=== PATIENT | female | born 1930 | race Caucasian/White ===

== ENCOUNTER 2019-07-17 12:47 | Inpatient (IN) ==
--- OUTSIDE RECORDS SUMMARY | 2019-07-17 12:50 | External Medical Summary | Continuity of Care Document ---
:1930 Author Name Mark Maynard Address Unavailable Unavailable , Care Team Providers Name Role Phone NonMNPG M.D. Unavailable [email or web address] Unavailable Unavailable Unavailable Unavailable Unavailable Problems Active medical history not documented Allergies and Adverse Reactions Demerol SOLN (Allergy) Fosamax (Allergy) loratadine (Allergy) lovastatin (Allergy) meperidine (Allergy) niacin (Allergy) Penicillins (Allergy) pravastatin (Allergy) simvastatin (Allergy) Medications Magnesium 500 MG Oral Capsule; TAKE 1 CAPSULE Daily Start: 06-Mar-2019 Refills: 0 Lisinopril 5 MG Oral Tablet; Take 1 tablet daily Start: 06-Mar-2019 Quantity: 90 Refills: 3 Pravastatin Sodium 10 MG Oral Tablet; TAKE 1 TABLET DAILY DIRECTED. Start: 06-Mar-2019 Refills: 0 Vitamin D3 2000 UNIT Oral Capsule; TAKE 1 CAPSULE Daily with the main meal Start: 06-Mar-2019 Refills: 0 Esomeprazole Magnesium 20 MG Oral Capsul e Delayed Release; TAKE 1 CAPSULE ONCE DAILY. Start: 06-Mar-2019 Refills: 0 Aspirin Low Dose 81 MG Oral Tablet Delayed Release; TAKE 1 T ABLET DAILY. Start: 06-Mar-2019 Refills: 0 Procedures History of colonoscopy Status: Completed History of dilation and curettage Status : Completed History of cataract surgery Status: Comp leted History of Tonsillectomy With Adenoidectomy Status: Completed Immunizations Immunizations not documented Family History Father Family history of asthma (V17.5) (Z82.5) Status: Active Sister Family history of diabetes mellitus (V18.0) (Z83.3) Status: Active Family history of cardiac disorder (V17.49) (Z82.49) Status: Active Brother Family history of diabetes mellitus (V18.0) (Z83.3) Status: Active Family history of arthritis (V17.7) (Z82.61) Status: Active Social History - Smoking Status Former smoker Plan of Treatment Planned Observations Planned Goals not documented Results No Known Results Results not documented
--- NOTE | 2019-07-17 13:21 | XRay Report ---
XR chest 1V portable HISTORY: 89 years-old Female Chest Pain acute atypical chest pain COMPARISON: None available TECHNIQUE: Portable AP view of the chest FINDINGS: Cardiomediastinal and hilar silhouettes are within normal limits. Mild biapical pleural thickening/pl eural parenchyma scarring. No pneumothorax, pleural effusion, focal airspace consolidation or overt p ulmonary edema. Ill-defined linear opacities of the right midlung may be secondary to summation densi ty versus scarring. Degenerative changes of the shoulders and spine. IMPRESSION: No acute process. The above report was generated using voice recognition software. It may contain grammatical, syntax o r spelling errors. Electronically signed by: Ashwin Aguilar M.D. 07/17/2019 1:19 PM
[2019-07-17] MEDS ORDERED: SODIUM CHLORIDE 0.9% 500 ML IV ONE (13:43)
[2019-07-17 13:56] LABS: Basophils # (auto) 0.06 K/uL (0-0.2); Basophils % (auto) 0.9 %; Eosinophils # (auto) 0.08 K/uL (0-0.5); Eosinophils % (auto) 1.2 %; Hematocrit (blood only) 43.3 % (37-47); Hemoglobin 14.9 g/dL (12.0-16.0); Immature Granulocytes # (auto) 0.02 K/uL (0.00-0.02); Immature Granulocytes % (auto) 0.3 %; Lymphocytes # (auto) 1.83 K/uL (1.2-3.4); Lymphocytes % (auto) 28.3 %; Mean Corpuscular Hemoglobin 29.6 pg (25-34); Mean Corpuscular Hgb Conc 34.4 g/dL (32-36); Mean Corpuscular Volume 86.1 fL (80-100); Mean Platelet Volume 10.2 fL (7.4-10.4); Monocytes % (auto) 9.3 %; Neutrophils # (auto) 3.87 K/uL (1.4-6.5); Platelet Count 199 K/uL (130-400); RDW Coefficient of Variation 13.4 % (11.5-14.5); RDW Standard Deviation 41.7 fL (36.4-46.3); Red Blood Count 5.03 M/uL (4.2-5.4); White Blood Count 6.46 K/uL (4.8-10.8)
[2019-07-17 14:07] LABS: Alanine Aminotransferase 23 U/L (12-78); Aspartate Aminotransferase 16 U/L (15-37); BUN Creatinine Ratio 13.5 (10-20); Blood Urea Nitrogen 12 mg/dl (7-18); Calcium 9.5 mg/dl (8.5-10.1); Carbon Dioxide 24 mmol/L (21-32); Chloride 108 mmol/L (98-107); Creatinine Clr Calc Pharmacy 34.3 ml/min; Est GFR (Non-African American) 55.2; Glucose 101 mg/dl (70-99); Lipase 115 U/L (73-393); Magnesium 2.3 mg/dl (1.8-2.4); Potassium 4.1 mmol/L (3.5-5.1); Sodium 139 mmol/L (136-145)
[2019-07-17 14:18] LABS: Albumin Globulin Ratio 1.2 (0.9-2); Alkaline Phosphatase 107 U/L (45-117); Globulin 3.3 gm/dl (2.5-4.0); Phosphorus 2.9 mg/dl (2.5-4.9); Total Protein 7.3 gm/dl (6.4-8.2); Troponin I < 0.015 ng/ml (0-0.045)
--- NOTE | 2019-07-17 15:45 | Cardiology Consultation ---
Date of Consultation July 17, 2019 Assessment & Plan (1) Second degree AV block, Mobitz type II: She denies any recent chest discomfort, or syncope. Patient presents with a week of symptoms of exertional shortness of breath. She has not had ryne syncope. She is been found to have Mobitz type II second-degree AV block with a ventricular rate ranging from the low 40s to Low 50 be per minute range during my time assessing her in the emergency department. She is conversant, and her mentation is intact. She is on no AV daniela blockers at baseline and her TSH is within normal limits. At this time I recommend admission to the first floor ICU for close observation. She is hemodynamically stable and I do not think a temporary transvenous pacemaker is indicated at the present time. We will plan to keep her n.p.o. after midnight. I discussed her case with Dr. Sahni of electrophysiology and the tentative plan is for Dual-chamber permanent pacemaker to be performed in the operating room tomorrow 07/18/2019. If she becomes symptomatic with low blood pressure or worsening heart rates overnight, will first support her with low-dose peripheral dopamine, and will reconsider the need for temporary transvenous pacemaker at that time. A transthoracic echocardiogram has been requested and is to be performed at the bedside within few minutes. The case was discussed with Shruti Nguyen PA-C of the [facility] service as well as Dr Keene of the ED , Dr Sahni, and the ICU attending. History of Present Illness History of Present Illness Mercedez Burris is an 89 year old female seen in cardiology consultation per the request of Dr Keene for the assessment of symptomatic bradycardia. The patient's primary care provider is Dr Wilcox. She has not followed with cardiology in the past. She presented to her primary care provider's office today just before 12 noon with 1 week history of shortness of breath with exertion.On arrival there she was found to have a slow heart rate When her vital signs were taken prompting a twelve-lead EKG performed 07/17/2019 at 1145 which revealed sinus rhythm with Mobitz type II second-degree AV block at 48 bpm. A bifascicular block pattern was also noted. She was referred to the emergency department and repeat EKG performed at 1307 revealed similar findings with a ventricular rate of 42 bpm at that time. EKG performed at 1520 reveals ventricular rate of 43 bpm. Monitoring the patient on telemetry, for the most part she seems to have 2 sinus beats followed by a dropped beat, 2-1 AV block however has also been observed and this was captured at the time of her 1520 EKG. She is not in acute distress. Her blood pressure has ranged anywhere from 200/80 on presentation to 160/49 at the time of her most recent repeat. Her past medical history is notable for dyslipidemia for which she takes pravastatin, and Hypertension for which she takes lisinopril and Hyperparathyroidism. Her Calcium level however is within normal limits today. Her social history is notable for past Cigarette smoking (). She lives independently with her significant other. Allergies Allergy/AdvReac Type Severity Reaction Status Date / Time Penicillins Allergy Severe edema Verified 07/17/19 14:52 loratadine Allergy Unknown Rash Verified 07/17/19 14:52 meperidine [From Demerol] Allergy Redness of Unverified 07/17/19 14:32 Skin Ashgcok-Aps-Sxl Reductase AdvReac Intermediate muscle pain Verified 07/17/19 14:52 Inhibitor lovastatin AdvReac Mild Muscle Pain Verified 07/17/19 14:52 alendronate sodium AdvReac Unknown herat burn Verified 07/17/19 14:52 [From Fosamax] Home Medications Home Medications Medication Instructions Recorded Confirmed Type aspirin [Aspirin Low Dose] 81 mg PO DAILY 07/17/19 07/17/19 History cholecalciferol (vitamin D3) 2,000 unit PO DAILY 07/17/19 07/17/19 History [Vitamin D3] esomeprazole magnesium [Nexium] 20 mg PO DAILY 07/17/19 07/17/19 History lisinopril 5 mg PO DAILY 07/17/19 07/17/19 History magnesium oxide 400 mg PO DAILY 07/17/19 07/17/19 History pravastatin 10 mg PO DAILY 07/17/19 07/17/19 History Patient History Medical History Heart murmur (Chronic) Family History Other No significant family history Social History Feels Safe at Home: Yes Smoking Status: Former smoker Review of Systems Review of Systems: All systems reviewed & are unremarkable except as noted in HPI & below Physical Exam Physical Exam: Temp Pulse Resp BP Pulse Ox 36.9 C 34 L 19 164/49 H 98 07/17/19 12:58 07/17/19 15:00 07/17/19 15:00 07/17/19 13:46 07/17/19 15:00 Constitutional: WD/WN, vitals as above Respiratory: normal respiratory effort, lungs clear to auscultation Cardiovascular: RRR, no murmur, no edema Gastrointestinal (Abdomen): normal bowel sounds, soft, nontender, no hepatosplenomegaly Skin: no rashes, warm and dry Neurologic: PERRL, EOMI, accommodation nl, no face palsy, no dysarthria Results & Data Vital Signs (Past 12 Hours) Vital Signs Temp Pulse Resp BP Pulse Ox 07/17/19 15:00 34 L 19 98 07/17/19 14:45 39 L 17 98 07/17/19 14:30 35 L 12 95 07/17/19 14:15 51 L 18 95 07/17/19 14:00 71 22 07/17/19 13:46 36 L 18 164/49 H 95 07/17/19 13:45 39 L 15 96 07/17/19 13:41 40 L 16 169/54 H 96 07/17/19 13:31 63 19 185/116 H 98 07/17/19 13:30 64 17 07/17/19 13:15 45 L 17 97 07/17/19 13:01 38 L 16 170/61 H 98 07/17/19 13:00 49 L 18 98 07/17/19 12:58 36.9 C 49 L 19 170/61 H 98 07/17/19 12:55 49 L 21 200/80 H 97 Laboratory Results Cardiac Enzymes 07/17/19 Range/Units 13:26 AST 16 (15-37) U/L Troponin I < 0.015 (0-0.045) ng/ml CBC 07/17/19 Range/Units 13:26 WBC 6.46 (4.8-10.8) K/uL RBC 5.03 (4.2-5.4) M/uL Hgb 14.9 (12.0-16.0) g/dL Hct 43.3 (37-47) % Plt Count 199 (130-400) K/uL Neut # (Auto) 3.87 (1.4-6.5) K/uL Lymph # (Auto) 1.83 (1.2-3.4) K/uL Wilkin # (Auto) 0.60 H (0.11-0.59) K/uL Eos # (Auto) 0.08 (0-0.5) K/uL Baso # (Auto) 0.06 (0-0.2) K/uL Comprehensive Metabolic Panel 07/17/19 Range/Units 13:26 Sodium 139 (136-145) mmol/L Potassium 4.1 (3.5-5.1) mmol/L Chloride 108 H (98-107) mmol/L Carbon Dioxide 24 (21-32) mmol/L BUN 12 (7-18) mg/dl Creatinine 0.92 (0.6-1.2) mg/dl Glucose 101 H (70-99) mg/dl Calcium 9.5 (8.5-10.1) mg/dl AST 16 (15-37) U/L ALT 23 (12-78) U/L Alkaline Phosphatase 107 (45-117) U/L Total Protein 7.3 (6.4-8.2) gm/dl Albumin 4.0 (3.4-5.0) gm/dl Intake and Output 07/17/19 07/17/19 07/17/19 06:59 14:59 22:59 Other: Weight 57.4 kg Patient Weight 07/18/19 06:59 Weight 57.4 kg
--- NOTE | 2019-07-17 16:25 | History & Physical Report ---
Date of Service July 17, 2019 Assessment & Plan (1) Second degree AV block, Mobitz type II: This is an 89 year old F who has significant past medical history of primary hyperparathyroidism, HTN, HLD, prediabetes, GERD, senile osteoporosis, transient constipation who presents to [facility] ED secondary to LIM x1 week and being referred by PCP. In ED patient was found to be bradycardic which prompted ECG. ECG revealed sinus rhythm with Mobitz type II second-degree AV block at 48 bpm. Her lab work was otherwise unremarkable including CBC, CMP, troponin, TSH, magnesium Chest x-ray revealed no acute abnormality Patient was seen and evaluated by cardiology Dr. Zapata, permanent pacemaker advised Echocardiogram performed which revealed normal left ventricular wall motion, LVEF 65 to 70%, mild mitral regurg Currently pt asymptomatic - admit to ICU for close cardiac monitoring Cardiology on board, appreciate their recommendations - care coordinated with Dr. Zapata to under go dual chamber pacemaker in a.m. Housekeeping Assistant on board - appreciate their input follow labs (2) Hypertension: blood pressure elevated on lisinopril - given bradycardia do not want to lower blood pressure monitor (3) Hyperlipidemia: continue statin (4) Pre-diabetes: A1C 5.9 03/13 icu hyperglycemic protocol (5) GERD (gastroesophageal reflux disease): continue PPI (6) DVT prophylaxis: SCDS/TEDS pt for procedure in a.m. therefore will hold chemical ppx Disposition: D/C to home when able Follow up: PCP Dr. Wilcox upon discharge Patient was seen and examined in collaboration with Dr. Dave, please see addendum History of Present Illness Chief Complaint: LIM x 1 week; referred by outpatient provider Primary Care Provider: Kristofer Wilcox MD This is an 89 year old F who has significant past medical history of primary hyperparathyroidism, HTN, HLD, prediabetes, GERD, senile osteoporosis, transient constipation who presents to [facility] ED secondary to LIM x1 week and being referred by PCP. Patient was seen in PCP office secondary to 1 week history of shortness of breath with exertion. When she was seen in outpatient provider office this afternoon she was noted to be in second-degree heart block and therefore referred to ED. Symptoms started after she was working vigorously outside and getting into her significant other's Truck. LIM came on abruptly and has been off and on for the past week. Does not occur at rest. Usually present for a few minutes and resolves with rest. Noticed mostly with using stairs but not typical ADLs. She has not had any fever, chills, sweats colitis, dizziness, syncope, chest pain, palpitations, cough, hemoptysis, nausea, vomiting, diarrhea, change in bowel or urinary habits. Complains of off and on constipation. No known tick bite, rash or myalgias. She was feeling her carotid pulse and felt like her heart was skipping a beat. In ED patient was found to be bradycardic which prompted ECG. ECG revealed sinus rhythm with Mobitz type II second-degree AV block at 48 bpm. Her lab work was otherwise unremarkable including CBC, CMP, troponin, TSH, magnesium Chest x-ray revealed no acute abnormality Patient was seen and evaluated by cardiology Dr. Zapata, permanent pacemaker advised Allergies Allergy/AdvReac Type Severity Reaction Status Date / Time Penicillins Allergy Severe edema Verified 07/17/19 14:52 loratadine Allergy Unknown Rash Verified 07/17/19 14:52 meperidine [From Demerol] Allergy Redness of Unverified 07/17/19 14:32 Skin Kdlxunc-Hrl-Oyv Reductase AdvReac Intermediate muscle pain Verified 07/17/19 14:52 Inhibitor lovastatin AdvReac Mild Muscle Pain Verified 07/17/19 14:52 alendronate sodium AdvReac Unknown herat burn Verified 07/17/19 14:52 [From Fosamax] Home Medications Home Medications Medication Instructions Recorded Confirmed Type aspirin [Aspirin Low Dose] 81 mg PO DAILY 07/17/19 07/17/19 History cholecalciferol (vitamin D3) 2,000 unit PO DAILY 07/17/19 07/17/19 History [Vitamin D3] esomeprazole magnesium [Nexium] 20 mg PO DAILY 07/17/19 07/17/19 History lisinopril 5 mg PO DAILY 07/17/19 07/17/19 History magnesium oxide 400 mg PO DAILY 07/17/19 07/17/19 History pravastatin 10 mg PO DAILY 07/17/19 07/17/19 History Past Med/Surg History Medical History Primary hyperparathyroidism Pre-diabetes GERD (gastroesophageal reflux disease) Osteoporosis, senile Hyperlipidemia (Chronic) Hypertension (Chronic) Second degree AV block, Mobitz type II (Acute) Heart murmur (Chronic) Surgical History History of tonsillectomy and adenoidectomy History of cataract extraction History of colonoscopy with polypectomy History of vein stripping History of D&C Family History Father Asthma Mother No problems noted. Sister Diabetes Sister Diabetes Coronary heart disease DVT prophylaxis Social History Preferred Language: Omani Communication Ability: Effective Adobe Cq Developer Required: No Beliefs That Will Affect Care: None marital status: Life Partner Current Living Situation: Significant Other Other Information That Helps Us Care for You: No Feels Safe at Home: Yes Safety Concerns: Feels Safe At This Time Smoking Status: Former smoker Do You Dip or Chew Tobacco: No ; Smoking End Date: 1962 ; Second Hand Exposure: No ; Tobacco Cessation Education Requested by Patient: No Hx Alcohol Use: No Hx Substance Use: No Review of Systems Review of Systems: All systems reviewed & are unremarkable except as noted in HPI & below Physical Exam Physical Exam: Constitutional: WD/WN, vitals as above, NAD, sitting up in bed, pleasant, conversing easily Head: Normocephalic, Atraumatic Eyes: PERRL, conjunctivae normal, anicteric sclerae ENMT: external ear and nose normal, oropharynx normal Neck: trachea midline, no thyromegaly normal visual inspection Respiratory: normal respiratory effort, lungs clear to auscultation, no wheeze, rales, rhonchi. Normal insp/exp effort, no accessory muscle use Cardiovascular: bradycardic rate, regular rhythm, no murmur, no edema Vessels: no JVD or carotid bruit Chest: normal inspection of chest Abdomen: normal bowel sounds, soft, nontender, no hepatosplenomegaly Musculoskeletal: no cyanosis or clubbing, extremities motor strength 5/5 Skin: no rashes, warm and dry normal turgor Neurologic: PERRL, EOMI, accommodation nl, no face palsy, no dysarthria CN's II-XI intact bilaterally and moves all extremities Psychiatric: A+Ox3, euthymic affect Lymphatic: no cervical or axillary lymphadenopathy : deferred Results & Data Vital Signs (Past 12 Hours) Vital Signs Temp Pulse Resp BP Pulse Ox 07/17/19 15:00 34 L 19 98 07/17/19 14:45 39 L 17 98 07/17/19 14:30 35 L 12 95 07/17/19 14:15 51 L 18 95 07/17/19 14:00 71 22 07/17/19 13:46 36 L 18 164/49 H 95 07/17/19 13:45 39 L 15 96 07/17/19 13:41 40 L 16 169/54 H 96 07/17/19 13:31 63 19 185/116 H 98 07/17/19 13:30 64 17 07/17/19 13:15 45 L 17 97 07/17/19 13:01 38 L 16 170/61 H 98 07/17/19 13:00 49 L 18 98 07/17/19 12:58 36.9 C 49 L 19 170/61 H 98 07/17/19 12:55 49 L 21 200/80 H 97 Laboratory Results Short CBC 07/17/19 Range/Units 13:26 WBC 6.46 (4.8-10.8) K/uL Hgb 14.9 (12.0-16.0) g/dL Hct 43.3 (37-47) % Plt Count 199 (130-400) K/uL BMP 07/17/19 13:26 Sodium 139 Potassium 4.1 Chloride 108 H Carbon Dioxide 24 BUN 12 Creatinine 0.92 Glucose 101 H Calcium 9.5 Cardiac Enzymes 07/17/19 Range/Units 13:26 Troponin I < 0.015 (0-0.045) ng/ml Liver Function 07/17/19 Range/Units 13:26 Total Bilirubin 2.0 H (0.2-1) mg/dl AST 16 (15-37) U/L ALT 23 (12-78) U/L Alkaline Phosphatase 107 (45-117) U/L Albumin 4.0 (3.4-5.0) gm/dl Diagnostic Findings CXR: IMPRESSION: No acute process. ECG Rate (beats per minute): 42 Rhythm: normal sinus Findings: + mobitz II block Additional Comments: bifasicular block noted Code Status & VTE Plan Code Status Full Code VTE Prophylaxis Plan VTE Prophylaxis will be ordered: Yes Supervising Physician Co-Signing Physician Notes I have seen and examined the patient and have discussed the case with the beena mckenzie above. I agree with the assessment and plan as stated with the following exceptions. 89 yo F with lightheadedness x 1 week presents to the ER, and was found to have Type II heart block requiring a pacemaker. She denies fevers, chills, chest pain, dyspnea or other symptoms aside from her lightheadedness. Workup reveals no evidence of active ischemia, valvular disease or infection present. Physical exam reveals a well developed female in no acute distress who is mentating clearly. Heart exam reveals bradycardia without murmurs, gallops or rubs. Lungs are clear to auscultation bilaterally. No peripheral edema is present. Assessment: Type II heart block. Agree with plan to place pacemaker. NPO p MN in preparation for procedure. Pacer pads in place. Appreciate cardiology recommendations. DO Tenzin
--- NOTE | 2019-07-17 16:41 | Critical Care Consultation ---
Date of Consultation July 17, 2019 Assessment & Plan (1) Second degree AV block, Mobitz type II: Summary: 89-year-old female transferred to the ICU following Mobitz type II second-degree AV block with bradycardia 40s to 50s, currently asymptomatic at rest. Neuro - [facility] ICU: Negative Cardiac - EKG showed second degree AV block, Mobitz type IIheart rate currently 40s to 50s -Patient is currently asymptomatic at rest -Cardiology consulted, appreciate recommendations -Patient to undergo dual-chamber pacemaker tomorrow -We will follow-up TTE -Does not currently require internal pacing -May add dopamine if patient becomes hypotensive -Continue monitor on telemetry HTNwe will hold antihypertensives for now considering bradycardia HLDcan continue lisinopril Respiratory - Maintaining oxygen saturations on room air, no issue at this time GI - N.p.o. at midnight Amylase and LFTs within normal limits RENAL/LYTES - Creatinine within normal limits Maximize electrolyte - Strict I's and O's ENDO - TSH within normal limits History of prediabetesICU hyperglycemia protocol HEME - H&H stable, routine CBCs ID - No indication for infectious process at this time LINES/IV ACCESS - Peripheral IVs DVT PROPHYLAXIS - SCDs, will hold anticoagulation for procedure tomorrow Thank you for allowing us to participate in the care of this patient. Please refer to my attending physician's documentation for any further recommendations. (2) SOB (shortness of breath): (3) Admitted to intensive care unit: (4) Hypertension: (5) Hyperlipidemia: Supervising Physician Co-Signing Physician Notes Patient seen and evaluated with Samir YUSUF. Very pleasant 89-year-old female with minimal past medical history who began having shortness of breath this past weekend. She also describes some palpi tations. She set up an appointment with her doctor who performed an EKG and then told her to come to the emergency department due to concern of a Mobitz type II heart block. She was evaluated by cardiology emergency department who recommended ICU admission and pacemaker placement tomorrow. Closely in the ICU. We will add dopamine if needed. Keep potassium above 4 and magnesium above 2. No indication for temporary pacer at the present moment. Discussed with body and frame technician. History of Present Illness History of Present Illness Ms. Burris is a 89-year-old female with past medical history of HTN, HLD, hyperparathyroidism, prediabetes who presented to the emergency department as referral from primary care for 1 week long dyspnea with exertion. In the emergency department she was found to be an second-degree AV block Mobitz type II with rate in the 40s and 50s. She has remained hemodynamically stable and normotensive in this rhythm. She is not requiring intervention at this time but is being transferred to the ICU for close observation in case she were to decompensate. Cardiology is consulted and has scheduled the patient to undergo dual-chamber pacemaker insertion tomorrow. Currently the patient appears comfortable. She is sitting upright in bed at rest. She reports a flushing of face and head experience in the emergency department while she was getting her EKG. She denies syncope, dizziness, lightheadedness, palpitations, chest pain, shortness of breath while at rest, nausea or vomiting, diarrhea, abdominal pain. Allergies Allergy/AdvReac Type Severity Reaction Status Date / Time Penicillins Allergy Severe edema Verified 07/17/19 14:52 loratadine Allergy Unknown Rash Verified 07/17/19 14:52 meperidine [From Demerol] Allergy Redness of Unverified 07/17/19 14:32 Skin Gzdtrsn-Vqx-Oig Reductase AdvReac Intermediate muscle pain Verified 07/17/19 14:52 Inhibitor lovastatin AdvReac Mild Muscle Pain Verified 07/17/19 14:52 alendronate sodium AdvReac Unknown herat burn Verified 07/17/19 14:52 [From Fosamax] Home Medications Home Medications Medication Instructions Recorded Confirmed Type aspirin [Aspirin Low Dose] 81 mg PO DAILY 07/17/19 07/17/19 History cholecalciferol (vitamin D3) 2,000 unit PO DAILY 07/17/19 07/17/19 History [Vitamin D3] esomeprazole magnesium [Nexium] 20 mg PO DAILY 07/17/19 07/17/19 History lisinopril 5 mg PO DAILY 07/17/19 07/17/19 History magnesium oxide 400 mg PO DAILY 07/17/19 07/17/19 History pravastatin 10 mg PO DAILY 07/17/19 07/17/19 History Patient History Medical History Primary hyperparathyroidism Pre-diabetes GERD (gastroesophageal reflux disease) Osteoporosis, senile Hyperlipidemia (Chronic) Hypertension (Chronic) Second degree AV block, Mobitz type II (Acute) Heart murmur (Chronic) Surgical History History of tonsillectomy and adenoidectomy History of cataract extraction History of colonoscopy with polypectomy History of vein stripping History of D&C Family History Father Asthma Mother No problems noted. Sister Diabetes Sister Diabetes Coronary heart disease DVT prophylaxis Social History Preferred Language: Kosovan Communication Ability: Effective Director Of Estate Required: No Beliefs That Will Affect Care: None marital status: Life Partner Current Living Situation: Significant Other Other Information That Helps Us Care for You: No Feels Safe at Home: Yes Safety Concerns: Feels Safe At This Time Smoking Status: Former smoker Do You Dip or Chew Tobacco: No ; Smoking End Date: 1962 ; Second Hand Exposure: No ; Tobacco Cessation Education Requested by Patient: No Hx Alcohol Use: No Hx Substance Use: No Physical Exam Eyes: PERRL, conjunctivae normal, anicteric sclerae ENMT: external ear and nose normal, oropharynx normal Neck: trachea midline, no thyromegaly Respiratory: normal respiratory effort, lungs clear to auscultation Cardiovascular: Irregular bradycardia on monitor, good peripheral perfusion, no JVD, normal capillary refill Gastrointestinal (Abdomen): normal bowel sounds, soft, nontender, no hepatosplenomegaly Skin: no rashes, warm and dry Neurologic: PERRL, EOMI, accommodation nl, no face palsy, no dysarthria Psychiatric: A+Ox3, euthymic affect Results & Data Vital Signs (Past 12 Hours) Vital Signs Temp Pulse Resp BP Pulse Ox 07/17/19 15:00 34 L 19 98 07/17/19 14:45 39 L 17 98 07/17/19 14:30 35 L 12 95 07/17/19 14:15 51 L 18 95 07/17/19 14:00 71 22 07/17/19 13:46 36 L 18 164/49 H 95 07/17/19 13:45 39 L 15 96 07/17/19 13:41 40 L 16 169/54 H 96 07/17/19 13:31 63 19 185/116 H 98 07/17/19 13:30 64 17 07/17/19 13:15 45 L 17 97 07/17/19 13:01 38 L 16 170/61 H 98 07/17/19 13:00 49 L 18 98 07/17/19 12:58 36.9 C 49 L 19 170/61 H 98 07/17/19 12:55 49 L 21 200/80 H 97 Laboratory Results Laboratory Results - last 24 hr 07/17/19 07/17/19 13:26 13:26 WBC 6.46 RBC 5.03 Hgb 14.9 Hct 43.3 MCV 86.1 MCH 29.6 MCHC 34.4 RDW Std Deviation 41.7 RDW Coeff of Ashley 13.4 Plt Count 199 MPV 10.2 Immature Gran % (Auto) 0.3 Neut % (Auto) 60.0 Lymph % (Auto) 28.3 [place] % (Auto) 9.3 Eos % (Auto) 1.2 Baso % (Auto) 0.9 Immature Gran # (Auto) 0.02 Neut # (Auto) 3.87 Lymph # (Auto) 1.83 [place] # (Auto) 0.60 H Eos # (Auto) 0.08 Baso # (Auto) 0.06 Sodium 139 Potassium 4.1 Chloride 108 H Carbon Dioxide 24 Anion Gap 7.0 BUN 12 Creatinine 0.92 Est Cr Clr Drug Dosing 34.3 Est GFR ( Amer) 64.0 Est GFR (Non-Af Amer) 55.2 BUN/Creatinine Ratio 13.5 Glucose 101 H Calcium 9.5 Phosphorus 2.9 Magnesium 2.3 Total Bilirubin 2.0 H AST 16 ALT 23 Alkaline Phosphatase 107 Troponin I < 0.015 Total Protein 7.3 Albumin 4.0 Globulin 3.3 Albumin/Globulin Ratio 1.2 Lipase 115 TSH 1.950 Medications Administered Home Medications aspirin [Aspirin Low Dose] 81 mg PO DAILY 07/17/19 [History Confirmed 07/17/19] cholecalciferol (vitamin D3) [Vitamin D3] 2,000 unit PO DAILY 07/17/19 [History Confirmed 07/17/19] esomeprazole magnesium [Nexium] 20 mg PO DAILY 07/17/19 [History Confirmed 07/17/19] lisinopril 5 mg PO DAILY 07/17/19 [History Confirmed 07/17/19] magnesium oxide 400 mg PO DAILY 07/17/19 [History Confirmed 07/17/19] pravastatin 10 mg PO DAILY 07/17/19 [History Confirmed 07/17/19] PG Care Time/CCT Total # of Minutes Spent Total Time Spent with Patient: Total time spent is greater than 50% in coordination of care (as documented) at patient's floor/unit and/or counseling patient:
[2019-07-17] MEDS ORDERED: MAGNESIUM HYDROXIDE SUSP 30 ML UDC PO PRN (17:27)
[2019-07-17] MEDS ORDERED: NON-FORMULARY MEDICATION (Cholecalciferol (Vitamin D3) [Vitamin D3] 2,000 UNITS) PO SCH (17:27)
[2019-07-17] MEDS ORDERED: ICU PROTOCOL FOR HYPERGLYCEMIA PRN (17:27)
[2019-07-17] MEDS ORDERED: ALUMINUM/MAGNESIUM SUSP 30 ML UDC PO PRN (17:27)
[2019-07-17] MEDS ORDERED: POLYETHYLENE (MIRALAX) 17 GM PACK PO PRN (17:27)
[2019-07-17] MEDS ORDERED: ONDANSETRON INJ 2 MG/ML 2 ML VIAL IV PRN (17:27)
--- NOTE | 2019-07-17 18:07 | Communication Note ---
Date of Service: July 17, 2019 Pt reassessed. Heart rates in the 60s , sitting up in bed eating dinner. Family at bedside. Asymptomatic. Echo reveals normal LVEF, mild MR. NPO after MN.
[2019-07-17 18:21] LABS: Bilirubin Direct 0.3 mg/dl (0-0.2)
[2019-07-17] MEDS: CHOLECALCIFEROL 1,000 UNITS TAB PO SCH (19:17)
[2019-07-17] MEDS: SODIUM CHLORIDE 0.9% 1000ML 1,000 ML IV SCH (19:18)
--- NOTE | 2019-07-17 20:11 | Emergency Department Note ---
Entered by Leana Johnson acting as a scribe for Power Keene MD History of Present Illness General Chief complaint: Shortness of Breath/Dyspnea Time Seen by Provider: 07/17/19 13:03 Source: patient History of Present Illness Onset (ago): week(s) 1 Location: mouth (shortness of breath) Pain Consistency: + other (worsening) Exacerbated By: + movement (dizziness worsens with walking up the stairs) Associated symptoms: + cough, + weakness and + other (intermittent dizziness, loss of energy) The patient is an 89 year old F who presents to the Emergency Room with complaints of worsening shortness of breath that started 1 week ago. The patient states that she is currently experiencing intermittent dizziness, weakness, a loss of energy, and coughing. She notes that her dizziness is worse with walking up the stairs. She states that her symptoms started when she was ripping out her old carpeting from her floor. She notes that she saw her PCP today who referred her to the ED due to a low heart rate. She adds that she has a history of a heart murmur. Home Medications Home Medications Medication Instructions Recorded Confirmed Type aspirin [Aspirin Low Dose] 81 mg PO DAILY 07/17/19 07/17/19 History cholecalciferol (vitamin D3) 2,000 unit PO DAILY 07/17/19 07/17/19 History [Vitamin D3] esomeprazole magnesium [Nexium] 20 mg PO DAILY 07/17/19 07/17/19 History lisinopril 5 mg PO DAILY 07/17/19 07/17/19 History magnesium oxide 400 mg PO DAILY 07/17/19 07/17/19 History pravastatin 10 mg PO DAILY 07/17/19 07/17/19 History Allergies Allergy/AdvReac Type Severity Reaction Status Date / Time Penicillins Allergy Severe edema Verified 07/17/19 14:52 loratadine Allergy Unknown Rash Verified 07/17/19 14:52 meperidine [From Demerol] Allergy Redness of Unverified 07/17/19 14:32 Skin Ushbbof-Sve-Lic Reductase AdvReac Intermediate muscle pain Verified 07/17/19 14:52 Inhibitor lovastatin AdvReac Mild Muscle Pain Verified 07/17/19 14:52 alendronate sodium AdvReac Unknown herat burn Verified 07/17/19 14:52 [From Fosamax] Past Med/Surg History Medical History Primary hyperparathyroidism Pre-diabetes GERD (gastroesophageal reflux disease) Osteoporosis, senile Hyperlipidemia (Chronic) Hypertension (Chronic) Second degree AV block, Mobitz type II (Acute) Heart murmur (Chronic) Surgical History History of tonsillectomy and adenoidectomy History of cataract extraction History of colonoscopy with polypectomy History of vein stripping History of D&C Family History Father Asthma Mother No problems noted. Sister Diabetes Sister Diabetes Coronary heart disease DVT prophylaxis Social History Preferred Language: Khmer Communication Ability: Effective Customer Marketing Manager Required: No Beliefs That Will Affect Care: None marital status: Life Partner Current Living Situation: Significant Other Other Information That Helps Us Care for You: No Feels Safe at Home: Yes Safety Concerns: Feels Safe At This Time Smoking Status: Former smoker Do You Dip or Chew Tobacco: No ; Smoking End Date: 1962 ; Second Hand Exposure: No ; Tobacco Cessation Education Requested by Patient: No Hx Alcohol Use: No Hx Substance Use: No Review of Systems See HPI for pertinent positives & negatives. and A total of 10 systems reviewed and were otherwise negative Physical Exam Vital Signs Vital Signs - 24 hr 07/17/19 12:55 07/17/19 12:58 07/17/19 13:00 Temperature 36.9 C Temperature Source Oral Sepsis Recent Fever Within 48 Hours No Sepsis Action Taken by Nursing No Action Required Pulse Rate 49 L 49 L 49 L Pulse Rate from SpO2 Sensor 53 L 56 L 44 L Pulse Rhythm Regular Irregular Pulse Strength Normal Respiratory Rate 21 19 18 Respiratory Effort / Characteristics Non-Labored Spontaneous Respiratory Depth Normal Respiratory Pattern Regular Blood Pressure 200/80 H 170/61 H Blood Pressure Mean 120 97 Blood Pressure Position Sitting Pulse Oximetry 97 98 98 Oxygen Delivery Method Room Air Room Air 07/17/19 13:01 07/17/19 13:15 07/17/19 13:30 Temperature Temperature Source Sepsis Recent Fever Within 48 Hours Sepsis Action Taken by Nursing Pulse Rate 38 L 45 L 64 Pulse Rate from SpO2 Sensor 40 L 47 L Pulse Rhythm Pulse Strength Respiratory Rate 16 17 17 Respiratory Effort / Characteristics Respiratory Depth Respiratory Pattern Blood Pressure 170/61 H Blood Pressure Mean 97 Blood Pressure Position Pulse Oximetry 98 97 Oxygen Delivery Method 07/17/19 13:31 07/17/19 13:41 07/17/19 13:45 Temperature Temperature Source Sepsis Recent Fever Within 48 Hours Sepsis Action Taken by Nursing Pulse Rate 63 40 L 39 L Pulse Rate from SpO2 Sensor 35 L 41 L 39 L Pulse Rhythm Pulse Strength Respiratory Rate 19 16 15 Respiratory Effort / Characteristics Respiratory Depth Respiratory Pattern Blood Pressure 185/116 H 169/54 H Blood Pressure Mean 139 92 Blood Pressure Position Pulse Oximetry 98 96 96 Oxygen Delivery Method 07/17/19 13:46 07/17/19 14:00 07/17/19 14:15 Temperature Temperature Source Sepsis Recent Fever Within 48 Hours Sepsis Action Taken by Nursing Pulse Rate 36 L 71 51 L Pulse Rate from SpO2 Sensor 37 L 54 L Pulse Rhythm Pulse Strength Respiratory Rate 18 22 18 Respiratory Effort / Characteristics Respiratory Depth Respiratory Pattern Blood Pressure 164/49 H Blood Pressure Mean 87 Blood Pressure Position Pulse Oximetry 95 95 Oxygen Delivery Method 07/17/19 14:30 07/17/19 14:45 07/17/19 15:00 Temperature Temperature Source Sepsis Recent Fever Within 48 Hours Sepsis Action Taken by Nursing Pulse Rate 35 L 39 L 34 L Pulse Rate from SpO2 Sensor 42 L 33 L 35 L Pulse Rhythm Pulse Strength Respiratory Rate 12 17 19 Respiratory Effort / Characteristics Respiratory Depth Respiratory Pattern Blood Pressure Blood Pressure Mean Blood Pressure Position Pulse Oximetry 95 98 98 Oxygen Delivery Method 07/17/19 15:15 07/17/19 15:19 Temperature Temperature Source Sepsis Recent Fever Within 48 Hours Sepsis Action Taken by Nursing Pulse Rate 49 L 48 L Pulse Rate from SpO2 Sensor 50 L Pulse Rhythm Pulse Strength Respiratory Rate 20 15 Respiratory Effort / Characteristics Respiratory Depth Respiratory Pattern Blood Pressure 198/73 H Blood Pressure Mean 114 Blood Pressure Position Pulse Oximetry 97 Oxygen Delivery Method GENERAL: Awake, alert, fatigued-appearing, in no distress HENT: Normocephalic, atraumatic. Oropharynx with dry mucous membranes and otherwise unremarkable. EYES: Normal conjunctiva. Sclera non-icteric. NECK: Supple. No nuchal rigidity. FROM. No JVD. RESPIRATORY: CTAB CARDIAC: Bradycardic rate and regular rhythm. ABDOMEN: Soft, non-distended. No tenderness to palpation. No rebound or guarding. No masses. RECTAL: Deferred. MUSCULOSKELETAL: Chest examination reveals no tenderness. The back is sym metrical on inspection without obvious abnormality. There is no CVA tenderness to palpation. No joint edema. LOWER EXTREMITIES: Calves are equal size bilaterally and non-tender. No edema. No discoloration. NEURO: Normal sensorium. No sensory or motor deficits noted. SKIN: No rash or jaundice noted. Course 1320: The patient was evaluated in room B10. A complete history and physical exam was performed. 1437: I reviewed the patient's case with Dr. Zapata, [facility] [place], [place]. 1453: I reviewed the patient's case with CAMERON Varner Hospitalist. She will evaluate the patient for further management. Consultations Consultation #1: I reviewed the patient's case with Dr. Zapata, [facility], [place]. Time: 14:37 Consultation #2: I reviewed the patient's case with CAMERON Varner Hospitalist. She will evaluate the patient for further management. Time: 14:53 Administered Medications Sodium Chloride (Nss 1000ml) 1,000 mls @ 75 mls/hr IV .[id number] RADHA Stop: 08/16/19 17:26 Last Admin: 07/17/19 19:18 Dose: 75 mls/hr Documented by: [id number] Pravastatin Sodium (Pravachol) 10 mg PO HS RADHA Stop: 08/16/19 20:59 Last Admin: 07/17/19 20:50 Dose: 10 mg Documented by: [id number] Vitamin D (Vitamin D3) 2,000 units PO DAILY RADHA Stop: 08/16/19 18:59 Last Admin: 07/17/19 19:17 Dose: 2,000 units Documented by: [id number] Discontinued Medications Sodium Chloride (Nss) 500 mls @ 999 mls/hr IV .Q31M ONE Stop: 07/17/19 14:13 Last Admin: 07/17/19 18:32 Dose: Not Given Documented by: [id number] Medical Decision Making Differential Diagnosis Differential Diagnosis includes but is not limited to dehydration, stroke, anemia, hypoglycemia, hyponatremia, hypernatremia, urinary tract infection, pneumonia, bronchitis, sepsis, gastroenteritis, additional abdominal pathology, metabolic abnormalities and infections. Medical Records Attestation: I reviewed the patient's medical records. Home Medications Current Medication List: was personally reviewed by me Laboratory Data Attestation: I reviewed the patient's lab results. Result diagrams: 07/17/19 13:26 07/17/19 13:26 Lab Results 07/17/19 07/17/19 07/17/19 Range/Units 13:26 13:26 13:26 WBC 6.46 (4.8-10.8) K/uL RBC 5.03 (4.2-5.4) M/uL Hgb 14.9 (12.0-16.0) g/dL Hct 43.3 (37-47) % MCV 86.1 (80-100) fL MCH 29.6 (25-34) pg MCHC 34.4 (32-36) g/dL RDW Std Deviation 41.7 (36.4-46.3) fL RDW Coeff of Ashley 13.4 (11.5-14.5) % Plt Count 199 (130-400) K/uL MPV 10.2 (7.4-10.4) fL Immature Gran % (Auto) 0.3 % Neut % (Auto) 60.0 % Lymph % (Auto) 28.3 % [place] % (Auto) 9.3 % Eos % (Auto) 1.2 % Baso % (Auto) 0.9 % Immature Gran # (Auto) 0.02 (0.00-0.02) K/uL Neut # (Auto) 3.87 (1.4-6.5) K/uL Lymph # (Auto) 1.83 (1.2-3.4) K/uL [place] # (Auto) 0.60 H (0.11-0.59) K/uL Eos # (Auto) 0.08 (0-0.5) K/uL Baso # (Auto) 0.06 (0-0.2) K/uL Sodium 139 (136-145) mmol/L Potassium 4.1 (3.5-5.1) mmol/L Chloride 108 H (98-107) mmol/L Carbon Dioxide 24 (21-32) mmol/L Anion Gap 7.0 (3-11) BUN 12 (7-18) mg/dl Creatinine 0.92 (0.6-1.2) mg/dl Est Cr Clr Drug Dosing 34.3 ml/min Est GFR ( Amer) 64.0 Est GFR (Non-Af Amer) 55.2 BUN/Creatinine Ratio 13.5 (10-20) Glucose 101 H (70-99) mg/dl Calcium 9.5 (8.5-10.1) mg/dl Phosphorus 2.9 (2.5-4.9) mg/dl Magnesium 2.3 (1.8-2.4) mg/dl Total Bilirubin 2.0 H (0.2-1) mg/dl Direct Bilirubin 0.3 H Cancelled (0-0.2) mg/dl AST 16 (15-37) U/L ALT 23 (12-78) U/L Alkaline Phosphatase 107 (45-117) U/L Troponin I < 0.015 (0-0.045) ng/ml Total Protein 7.3 (6.4-8.2) gm/dl Albumin 4.0 (3.4-5.0) gm/dl Globulin 3.3 (2.5-4.0) gm/dl Albumin/Globulin Ratio 1.2 (0.9-2) Lipase 115 (73-393) U/L TSH 1.950 (0.300-4.500) uIu/ml Imaging Data Radiologist's Impression: Radiology results as stated below per my review and the radiologist's interpretation: XR chest 1V portable HISTORY: 89 years-old Female Chest Pain acute atypical chest pain COMPARISON: None available TECHNIQUE: Portable AP view of the chest FINDINGS: Cardiomediastinal and hilar silhouettes are within normal limits. Mild biapical pleural thickening/pleural parenchyma scarring. No pneumothorax, pleural effusion, focal airspace consolidation or overt pulmonary edema. Ill-defined linear opacities of the right midlung may be secondary to summation density versus scarring. Degenerative changes of the shoulders and spine. IMPRESSION: No acute process. The above report was generated using voice recognition software. It may contain grammatical, syntax or spelling errors. Electronically signed by: Ashwin Aguilar M.D. 07/17/2019 1:19 PM ECG Data Attestation: I personally reviewed and interpreted this ECG as follows: Indication: bradycardia Rate (beats per minute): 42 Rhythm: sinus bradycardia Findings: + other (2:1 AV conduction), + mobitz II block and + RBBB Blood Pressure Blood Pressure Findings: Elevated blood pressure Blood Pressure Disposition: further management by hospitalist ZORAIDA Narrative The patient is a pleasant 84-year-old woman with a past medical history of hypertension, HLD, GERD who presents emerged department with generalized weakness and persistent shortness of breath since Saturday seen by her PCPs office found to have second-degree Mobitz type II heart block and sent to emergency department for evaluation. On arrival patient is fatigued appearing but no acute distress, afebrile, bradycardic in upper 30s-40s, Hypertensive 170s/60s and otherwise stable vital signs. Patient appears clinically dry. Mentating normally. EKG again demonstrates persistent Mobitz type II heart block with 2:1 conduction without overt acute ischemia. Pacer pads placed on pa tient as a precaution with code cart outside room. Chest x-ray negative for acute process. WBC, H/H, platelets wnl. Chemistry without acidosis. LFTs and electrolytes unremarkable. Troponin negative. Case was discussed with Alex Varner PA-C who will evaluate the patient for admission. On behalf of the admitting team, case was discussed with Alex cardiology, Dr. Zapata, who evaluated the patient at the bedside. Impression & Plan Second degree AV block, Mobitz type II, SOB (shortness of breath) Critical Care Time Critical Care Time: Yes Total Critical Care Time: 35 I have personally spent greater than 35 minutes of critical care time in the direct management of this patient. This includes bedside care, interpretation of diagnostic studies, and testing, discussion with consultants, patient, and family members, and other required patient management activities. This 35 minutes is in excess of all separately billable procedures. Discharge Plan Visit Data *Final* Discharge Date/Time: 07/17/19 16:53 Chief Complaint: Shortness of Breath/Dyspnea Other Complaint: Abnormal Labs/Diagnostic Testing ED Provider: Power Keene Discharge Problem: Second degree AV block, Mobitz type II, SOB (shortness of breath) Patient Disposition: Admitted As Inpatient Discharge Instructions Interventions: ED Discharge Assessment Last Done: 07/17/19 16:53 The scribe's documentation has been prepared under my direction and personally reviewed by me in its entirety. I confirm that the note above accurately reflects all work, treatment, procedures, and medical decision making performed by me.
[2019-07-17 20:33] LABS: Appearance Urine Clear (Clear); Bacteria Urine Automated Negative (Negative); Bilirubin Urine Negative (Negative); Blood Urine Negative (Negative); Cast Urine Automated 0 /lpf (0-5); Color Urine Yellow; Epithelial Cell Urine Auto 0-5 /lpf (0-5); Glucose Urine UA Negative (Negative); Ketones Urine Trace (Negative); Leukocyte Esterase Urine Trace (Negative); Nitrite Urine Negative (Negative); Protein Urine Negative (Negative); RBC Urine Automated 0-4 /hpf (0-4); Specific Gravity Urine 1.011 (1.000-1.030); Urobilinogen Urine Negative (Negative)
[2019-07-17] MEDS: PRAVASTATIN SOD 10 MG TAB PO SCH (20:50)
[2019-07-18 04:49] LABS: Hematocrit (blood only) 40.7 % (37-47); Hemoglobin 13.9 g/dL (12.0-16.0); Mean Corpuscular Hemoglobin 29.3 pg (25-34); Mean Corpuscular Hgb Conc 34.2 g/dL (32-36); Mean Corpuscular Volume 85.7 fL (80-100); Mean Platelet Volume 10.1 fL (7.4-10.4); Platelet Count 192 K/uL (130-400); RDW Coefficient of Variation 13.2 % (11.5-14.5); RDW Standard Deviation 41.5 fL (36.4-46.3); Red Blood Count 4.75 M/uL (4.2-5.4); White Blood Count 6.35 K/uL (4.8-10.8)
[2019-07-18 05:03] LABS: Partial Thromboplastin Ratio 0.9; Partial Thromboplastin Time 25.7 Seconds (21.0-31.0); Prothrombin Time 10.6 Seconds (9.0-12.0)
[2019-07-18 05:06] LABS: BUN Creatinine Ratio 18.3 (10-20); Calcium 9.2 mg/dl (8.5-10.1); Creatinine Clr Calc Pharmacy 34.7 ml/min; Est GFR (African American) 64.8; Est GFR (Non-African American) 55.9; Magnesium 2.3 mg/dl (1.8-2.4)
[2019-07-18 05:07] LABS: Phosphorus 2.9 mg/dl (2.5-4.9)
--- NOTE | 2019-07-18 06:47 | Anesthesiology Consultation ---
Date of Service July 18, 2019 Assessment & Plan Chart Review Chart Review: Acceptable Risk for Surgery and Patient NOT seen in Pre Admission Testing Consults Requested none ASA ASA4 Proposed Anesthesia Anesthesia Type: MAC History Surgery Operation Date: 07/18/19 07:30 Proposed Procedures p Pacemaker Insertion - Gasper Sahni MD Height/Weight Height: 5 ft 3 in Weight: 55.7 kg Allergies Allergy/AdvReac Type Severity Reaction Status Date / Time Penicillins Allergy Severe edema Verified 07/17/19 14:52 loratadine Allergy Unknown Rash Verified 07/17/19 14:52 meperidine [From Demerol] Allergy Redness of Unverified 07/17/19 14:32 Skin Oryxgcz-Rjk-Qjr Reductase AdvReac Intermediate muscle pain Verified 07/17/19 14:52 Inhibitor lovastatin AdvReac Mild Muscle Pain Verified 07/17/19 14:52 alendronate sodium AdvReac Unknown herat burn Verified 07/17/19 14:52 [From Fosamax] Medications Home Medications Medication Instructions Recorded Confirmed Last Taken aspirin [Aspirin Low Dose] 81 mg PO DAILY 07/17/19 07/17/19 07/17/19 cholecalciferol (vitamin D3) 2,000 unit PO DAILY 07/17/19 07/17/19 Unknown [Vitamin D3] esomeprazole magnesium [Nexium] 20 mg PO DAILY 07/17/19 07/17/19 07/16/19 lisinopril 5 mg PO DAILY 07/17/19 07/17/19 07/17/19 magnesium oxide 400 mg PO DAILY 07/17/19 07/17/19 Unknown pravastatin 10 mg PO DAILY 07/17/19 07/17/19 07/16/19 Active Medications Generic Name Dose Route Start Last Admin Trade Name Freq PRN Reason Stop Dose Admin Sodium Chloride 1,000 mls @ 75 mls/hr 07/17/19 17:27 07/17/19 19:18 Nss 1000ml IV 08/16/19 17:26 75 mls/hr .[id number] RADHA Administration Pravastatin Sodium 10 mg 07/17/19 21:00 07/17/19 20:50 Pravachol PO 08/16/19 20:59 10 mg HS RADHA Administration Vitamin D 2,000 units 07/17/19 19:00 07/17/19 19:17 Vitamin D3 PO 08/16/19 18:59 2,000 units DAILY RADHA Administration Past Medical History Medical History Primary hyperparathyroidism Pre-diabetes GERD (gastroesophageal reflux disease) Osteoporosis, senile Hyperlipidemia (Chronic) Hypertension (Chronic) Second degree AV block, Mobitz type II (Acute) Heart murmur (Chronic) Exercise / Class Metabolic Activity III < 4 Walking/Shop/Light housework Past Family History Family History Father Asthma Mother No problems noted. Sister Diabetes Sister Diabetes Coronary heart disease DVT prophylaxis Past Surgical History Surgical History History of tonsillectomy and adenoidectomy History of cataract extraction History of colonoscopy with polypectomy History of vein stripping History of D&C Past Anesthesia History No Hx of Anesthesia Complications and No Family Hx of Anesthesia Complications History of PONV No Hx of PONV and No Hx of Motion Sickness Social History Smoking Status: Former smoker Do You Dip or Chew Tobacco: No Smoking End Date: 1962 Hx Alcohol Use: No Hx Substance Use: No Physical Exam Vital Signs Last Vital Signs Temp 36.4 C L 07/18/19 04:00 Pulse 44 L 07/18/19 06:00 Resp 21 07/18/19 06:00 BP 168/58 H 07/18/19 06:00 Pulse Ox 95 07/18/19 06:00 Testing Laboratory Results 07/18/19 04:32 07/18/19 04:32 PT 10.6 Seconds (9.0-12.0) 07/18/19 04:32 INR 1.0 (0.9-1.1) 07/18/19 04:32 APTT 25.7 Seconds (21.0-31.0) 07/18/19 04:32 Urine Color Yellow 07/17/19 20:20 Urine Appearance Clear (Clear) 07/17/19 20:20 Urine pH 6.0 (4.5-7.5) 07/17/19 20:20 Ur Specific [place] 1.011 (1.000-1.030) 07/17/19 20:20 Urine Protein Negative (Negative) 07/17/19 20:20 Urine Glucose (UA) Negative (Negative) 07/17/19 20:20 Urine Ketones Trace (Negative) H 07/17/19 20:20 Urine Nitrite Negative (Negative) 07/17/19 20:20 Ur Leukocyte Esterase Trace (Negative) H 07/17/19 20:20 Urine WBC (Auto) 1-5 /hpf (0-5) 07/17/19 20:20 Urine RBC (Auto) 0-4 /hpf (0-4) 07/17/19 20:20 U Hyaline Cast (Auto) 0 /lpf (0-5) 07/17/19 20:20 U Epithel Cells (Auto) 0-5 /lpf (0-5) 07/17/19 20:20 Urine Bacteria (Auto) Negative (Negative) 07/17/19 20:20 Electrocardiogram Date: 07/18/19 Findings: + SB @ (at 44;2nd degree AV block (mobitz type 1) ;LAD;Rbbb) Chest X-Ray Date: 07/17/19 Findings: + NAD
[2019-07-18] MEDS ORDERED: DEXAMETHASONE SOD INJ 4 MG/ML VIAL ONE (07:31)
[2019-07-18] MEDS ORDERED: ONDANSETRON INJ 2 MG/ML 2 ML VIAL ONE (07:31)
[2019-07-18] MEDS ORDERED: MIDAZOLAM HCL 1 MG/ML 2ML VIAL ONE ×2 (07:31→17:58)
[2019-07-18] MEDS ORDERED: fentaNYL citrate 100 MCG/2 ML VIAL ONE ×2 (07:31→17:58)
[2019-07-18] MEDS ORDERED: PROPOFOL IV EMULSION 10 MG/ML 20 ML VIAL IV ONE ×3 (07:31→08:55)
[2019-07-18] MEDS ORDERED: LIDOCAINE HCL 2% 2 ML VIAL/AMP(20MG/ML) INFIL ONE (07:31)
--- NOTE | 2019-07-18 07:31 | History & Physical Bridge Note ---
Date of Service July 18, 2019 History & Physical Bridge Note I have examined the patient, reviewed the History & Physical and in the interval since the performance of the History & Physical I have noted the following changes of clinical significance: no changes noted. I discussed the indications, procedure, risks and alternatives with the patient and her significant other and they understand and she agrees to proceed. Consent obtained.
--- NOTE | 2019-07-18 07:31 | Cardiology Consultation ---
Date of Consultation July 18, 2019 Assessment & Plan (1) SOB (shortness of breath): She had recent onset of dyspnea on exertion which is almost certainly due to second-degree AV block and bradycardia. No other etiology seems likely. 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 As such she should have a pacemaker for symptomatic second-degree AV block with a high likelihood of progression to complete heart block. I discussed the indications, procedure, risks and alternatives with her and her friend who was with her and they understand and she agrees to proceed. We will plan dual-chamber pacemaker implantation today. History of Present Illness Attending Physician: Neel Constantino DO History of Present Illness This is a 89-year-old woman who has a history of 1 week of shortness of breath with exertion, she presented to her primary care provider's office where she was noted to have a slow heart rate and a twelve-lead electrocardiogram showed Mobitz 2 second-degree AV block and a heart rate of under 50 bpm. She had a bifascicular block pattern. She came to the emergency room here and had a similar finding. On telemetry monitoring she is continued to have Mobitz 2 second-degree AV block. This morning her rhythm has continued, she is on no medications to cause heart block. She is therefore going to undergo pacemaker implantation for symptomatic second-degree AV block. Allergies Allergy/AdvReac Type Severity Reaction Status Date / Time Penicillins Allergy Severe edema Verified 07/17/19 14:52 loratadine Allergy Unknown Rash Verified 07/17/19 14:52 meperidine [From Demerol] Allergy Redness of Unverified 07/17/19 14:32 Skin Xwmsgre-Pah-Orw Reductase AdvReac Intermediate muscle pain Verified 07/17/19 14:52 Inhibitor lovastatin AdvReac Mild Muscle Pain Verified 07/17/19 14:52 alendronate sodium AdvReac Unknown herat burn Verified 07/17/19 14:52 [From Fosamax] Home Medications Home Medications Medication Instructions Recorded Confirmed Type aspirin [Aspirin Low Dose] 81 mg PO DAILY 07/17/19 07/17/19 History cholecalciferol (vitamin D3) 2,000 unit PO DAILY 07/17/19 07/17/19 History [Vitamin D3] esomeprazole magnesium [Nexium] 20 mg PO DAILY 07/17/19 07/17/19 History lisinopril 5 mg PO DAILY 07/17/19 07/17/19 History magnesium oxide 400 mg PO DAILY 07/17/19 07/17/19 History pravastatin 10 mg PO DAILY 07/17/19 07/17/19 History Patient History Medical History Primary hyperparathyroidism Pre-diabetes GERD (gastroesophageal reflux disease) Osteoporosis, senile Hyperlipidemia (Chronic) Hypertension (Chronic) Second degree AV block, Mobitz type II (Acute) Heart murmur (Chronic) Surgical History History of tonsillectomy and adenoidectomy History of cataract extraction History of colonoscopy with polypectomy History of vein stripping History of D&C Family History Father Asthma Mother No problems noted. 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 HEENT: Unremarkable Neck: No jugular venous distention, carotid pulses are irregular but otherwise normal and equal bilaterally without bruits. Pulmonary: Clear to auscultation bilaterally. Cardiac: Irregular rhythm with no murmur, gallop or rub. Abdomen: Soft, nontender with normal bowel sounds. Extremities: No edema. Distal pulses intact. Neurologic: No focal findings. Gait is steady. Skin: No rash, ecchymoses or petechiae. 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 Telemetry: Mobitz 2 second-degree AV block Echocardiography shows no significant abnormality. PG Care Time/CCT Total # of Minutes Spent Total Time Spent with Patient: Total time spent is greater than 50% in coordination of care (as documented) at patient's floor/unit and/or counseling patient:
[2019-07-18] MEDS ORDERED: LIDOCAINE HCL 1% 20 ML VIAL ONE (07:39)
[2019-07-18] MEDS ORDERED: BACITRACIN INJ 50,000 UNIT VIAL ONE (07:39)
[2019-07-18] MEDS ORDERED: SODIUM CHLORIDE 0.9% PF 50 ML VIAL ONE (07:41)
[2019-07-18] MEDS: SODIUM CHLORIDE 0.9% 1000ML 1,000 ML IV SCH (07:55)
[2019-07-18] MEDS ORDERED: BACITRACIN OINT 15 GM TUBE ONE (08:59)
[2019-07-18] MEDS ORDERED: ASPIRIN 81 MG ECTAB PO SCH ×2 (09:00)
--- NOTE | 2019-07-18 09:10 | Operative Report ---
Post Operative Report Pre & Post Diagnosis Operation Date: 07/18/19 07:30 Pre-Op Diagnosis: 2ND DEGREE HEART BLOCK Post-Op Diagnosis: 2ND DEGREE HEART BLOCK Procedure Operation Date: 07/18/19 07:30 Actual Procedures p Pacemaker Insertion(Left) - Gasper Sahni MD Surgeon Gasper Sahni MD Conservation Scientist None Estimated Blood Loss 15 Findings Consistent with Post-Op Diagnosis Specimens None Anesthesia Type MAC Complications none Disposition Disposition: Surgical ICU Description of Procedure After obtaining informed consent for the procedure, the patient was brought to the laboratory and prepped and draped in the standard sterile manner. The left prepectoral region was anesthetized with 1% lidocaine local anesthetic and left axillary venipuncture was performed by percutaneous technique and a guidewire placed through the left subclavian vein into the superior vena cava. The area was further infiltrated with 1% lidocaine local anesthetic and a 5 cm incision was made parallel to the left clavicle and 2 cm below it and carried down to the anterior pectoralis fascia. A pacemaker pocket was formed by blunt dissection anterior to the pectoralis fascia and a bacitracin-soaked sponge (50,000 units in 50 cc normal saline solution) was placed in the pocket. An 8 [place] Medtronic lead introducer was placed over the guidewire into the left subclavian vein, the dilator and guidewire were removed and a bipolar active fixation steroid tipped ventricular lead was advanced through the introducer into the superior vena cava. A guidewire was placed through the introducer and the introducer was stripped from the lead and guidewire. Another 8 [place] Medtronic lead introducer was placed over the guidewire into the left subclavian vein, the dilator and guidewire were removed and a bipolar active fixation steroid tipped atrial lead was advanced through the introducer into the superior vena cava. A guidewire was placed back through the introducer and the introducer was stripped from the lead and guidewire. Using a curved stylette the ventricular lead was advanced through the right ventricular outflow tract into the pulmonary artery and then using a straight stylette was positioned in the right ventricular apex. The screw was extended fixing the lead in position. Pacing and sensing thresholds were evaluated in bipolar configuration and are recorded on the implant data sheet. Using a curved stylette the atrial lead was positioned in the region of the atrial appendage and the screw extended fixing the lead in position. Pacing and sensing thresholds were evaluated in bipolar configuration and are recorded on the implant data sheet. Once the leads were in position they were attached to the anterior pectoralis fascia using 2 sutures of 2-0 silk around each lead collar. The bacitracin- soaked sponge was removed from the pocket, hemostasis was obtained, the pacemaker was attached to the leads and placed in the pocket with the leads coiled beneath it. The incision was closed with a running double subcutaneous closure of 3-0 Vicryl absorbable suture, followed by running subcuticular skin closure of 4-0 Vicryl absorbable suture. Bacitracin ointment was placed on the incision and a dressing applied. I attest to the content of the Intraoperative Record and any orders documented therein. Any exceptions are noted below.
[2019-07-18] MEDS ORDERED: ACETAMINOPHEN 325 MG TAB PO PRN (09:11)
[2019-07-18] MEDS ORDERED: ACETAMINOPHEN W/CODEINE #3 1 TAB PO PRN (09:11)
[2019-07-18] MEDS ORDERED: NOREPINEPHRINE BITARTRATE 1 MG/ML 4 ML VIAL IV ONE (09:29)
[2019-07-18] MEDS ORDERED: ATROPINE SULFATE 0.1 MG/ML 10ML SYR IV PRN (09:34)
[2019-07-18] MEDS ORDERED: ePHEDrine sulfate 50 MG/ML AMP IV PRN (09:34)
--- NOTE | 2019-07-18 09:45 | Hospitalist Progress Note ---
Date of Service July 18, 2019 Assessment & Plan (1) Second degree AV block, Mobitz type II: This is an 89 year old F who has significant past medical history of primary hyperparathyroidism, HTN, HLD, prediabetes, GERD, senile osteoporosis, transient constipation who presents to [facility] ED secondary to LIM x1 week and being referred by PCP. In ED patient was found to be bradycardic which prompted ECG. ECG revealed sinus rhythm with Mobitz type II second-degree AV block at 48 bpm. Her lab work was otherwise unremarkable including CBC, CMP, troponin, TSH, magnesium Chest x-ray revealed no acute abnormality Patient was seen and evaluated by cardiology Dr. Zapata, permanent pacemaker advised Echocardiogram performed which revealed normal left ventricular wall motion, LVEF 65 to 70%, mild mitral regurg PCU today Underwent dual chamber pacemaker today 07/[address] Sahni follow labs (2) Hypertension: Currently hypotensive liter bolus (3) Hyperlipidemia: continue statin (4) Pre-diabetes: A1C 5.9 03/13 (5) GERD (gastroesophageal reflux disease): continue PPI (6) DVT prophylaxis: SCDS/TEDS pt for procedure in a.m. therefore will hold chemical ppx Disposition: D/C to home 1-2 days. Follow up: PCP Dr. Wilcox upon discharge ROS-No Headache, No Visual Changes, No Nausea, No Vomiting, No Fever, No Chills, No Neck Pain or Stiffness, Sore L Chest, No Palpitations, No SOB, No LIM, No Cough, No Sputum, No Wheezing, No Abdominal Pain, No Diarrhea, No Hematemesis, No Hemoptysis, No Unexpected Weight Loss, No Flank pain, No Melena, No Hematochezia, No Frequency, No Urgency, No Burning, No Hematuria, No Rashes, No Diaphoresis. Appetite is Normal Physical Exam Gen-AAO x 3, NAD, Afebrile, Pacer wound checked Head-NCAT, EOMI, PERRLA, Anicteric Sclera, No Posterior Pharyngeal Erythema Neck-Supple, No JVD, No Thyromegaly, No Masses, No LAD, No Bruits Lungs-Clear to Auscultation Bilaterally, No Rales, No Rhonchi, No Wheezing, No Crepitus Chest-No S4, +S1, +S2, No S3, No Murmurs, No Rubs, No Gallops, No Ectopy Abdomen-Soft, Bowel Sounds Present, Non Tender, Non Distended, No Hepatomegaly, No Splenomegaly, No Palpable Masses, No Rebound, No Rigidity, No Guarding Musculoskeletal-Full Range of Motion Bilaterally, No CVAT Extremities-No Cyanosis, No Clubbing, No Edema Nuero-Cranial Nerves II-XII grossly intact, Motor WNL, DTRs WNL, Strength WNL, Non Focal Psych-Normal Mood Results & Data Vital Signs (Past 12 Hours) Vital Signs Temp Pulse Pulse Resp BP BP Pulse Ox 07/18/19 09:11 36.4 C L 60 10 L 52/32 L 90 07/18/19 07:01 36.4 C L 32 L 15 155/59 H 95 07/18/19 06:00 44 L 21 168/58 H 95 07/18/19 04:00 36.4 C L 41 L 18 160/46 H 95 07/18/19 03:00 40 L 15 169/98 H 95 07/18/19 02:00 38 L 17 163/76 H 95 07/18/19 01:00 40 L 14 170/47 H 95 07/18/19 00:00 39 L 15 175/53 H 95 07/17/19 23:00 38 L 16 175/58 H 96 07/17/19 22:00 50 L 20 171/67 H 93 Current Diagnoses Hyperlipidemia, unspecified (07/17/19) Essential (primary) hypertension (07/17/19) Atrioventricular block, second degree (07/17/19) Gastro-esophageal reflux disease without esophagitis (07/17/19) Shortness of breath (07/17/19) Prediabetes (07/17/19) Encounter for prophylactic measures, unspecified (07/17/19) Other specified health status (07/17/19) Allergies Penicillins Allergy (Severe, Verified 07/17/19 14:52) edema loratadine Allergy (Unknown, Verified 07/17/19 14:52) Rash meperidine [From Demerol] Allergy (Unverified 07/17/19 14:32) Redness of Skin Ldwfoih-Tzr-Upi Reductase Inhibitor Adverse Reaction (Intermediate, Verified 07/17/19 14:52) muscle pain lovastatin Adverse Reaction (Mild, Verified 07/17/19 14:52) Muscle Pain alendronate sodium [From Fosamax] Adverse Reaction (Unknown, Verified 07/17/19 14:52) herat burn Height/Weight/Isolation Height 5 ft 3 in Weight 55.7 kg Chemistry 07/17/19 07/18/19 13:26 04:32 Sodium 139 141 Potassium 4.1 4.0 Chloride 108 H 111 H Carbon Dioxide 24 22 Anion Gap 7.0 8.0 BUN 12 17 Creatinine 0.92 0.91 Glucose 101 H 109 H Urinalysis 07/17/19 20:20 Urine Color Yellow Urine Appearance Clear Urine pH 6.0 Ur Specific [place] 1.011 Urine Protein Negative Urine Glucose (UA) Negative Urine Ketones Trace H Urine Blood Negative Urine Nitrite Negative Urine Bilirubin Negative
[2019-07-18] MEDS ORDERED: SODIUM CHLORIDE 0.9% 1000ML 1,000 ML IV ONE (09:48)
--- NOTE | 2019-07-18 10:12 | Fluoroscopy Report ---
FL pacemaker insert CLINICAL HISTORY: PACEMAKER INSERTION COMPARISON STUDY: Chest radiograph July 17, 2019. Fluoroscopy time: 6 minutes and 31 seconds. Number of fluoroscopic images: 1. FINDINGS: This image demonstrates placement of a dual-lead left subclavian pacemaker. Lead tips proje ct over the right atrial appendage and right ventricle. IMPRESSION: Fluoroscopic image demonstrating placement of a dual lead left subclavian pacemaker. Electronically signed by: Obed Schmid M.D. 07/18/2019 10:11 AM
--- NOTE | 2019-07-18 10:14 | XRay Report ---
XR chest 1V portable CLINICAL HISTORY: Post pacemaker insertion. Shortness of breath. COMPARISON STUDY: Chest radiograph July 17, 2019. FINDINGS: Interval placement of a dual lead left subclavian pacemaker is noted. Lead tips project ove r the right atrial appendage and right ventricle. There is no pneumothorax or pleural effusion. Pulmo nary vascular congestion with possible mild pulmonary edema has developed. There is no consolidation to suggest pneumonia. Linear left basilar opacity suggests atelectasis. IMPRESSION: 1. No pneumothorax following placement of a dual lead left subclavian pacemaker. 2. Interval development of pulmonary vascular congestion with suspected mild pulmonary edema. Electronically signed by: Obed Schmid M.D. 07/18/2019 10:13 AM
[2019-07-18] MEDS: CHOLECALCIFEROL 1,000 UNITS TAB PO SCH (10:29)
[2019-07-18] MEDS: PANTOprazole 40 MG TAB PO SCH (10:29)
[2019-07-18] MEDS: ASPIRIN 81 MG ECTAB PO SCH (10:29)
[2019-07-18] MEDS: ACETAMINOPHEN 325 MG TAB PO PRN (10:30)
--- NOTE | 2019-07-18 11:00 | Critical Care Progress Note ---
Date of Service July 18, 2019 Assessment & Plan (1) Second degree AV block, Mobitz type II: Patient had a hypotensive and hypoxemic episode after coming back from the OR status post permanent pacemaker placement. She is doing well now. She received 2 mg of Versed, 200 mcg of fentanyl and 80 mg of propofol in the OR. She was not intubated for the procedure per anesthesia. Blood loss is minimal. She was diaphoretic post procedure and was complaining of nausea. We gave her some Zofran and liter of fluids. Her blood pressure and oxygenation have improved. Chest x-ray was obtained which did not demonstrate any evidence of pneumothorax. There were some vascular congestion. I would hold off any further fluids at this present time. Echo reviewed from yesterday with normal EF. She had mild mitral regurg. Cardiology does not recommend any endovascular intervention at this present time. She is stable to transfer to the floor with telemetry. (2) SOB (shortness of breath): (3) Admitted to intensive care unit: (4) Hypertension: (5) Hyperlipidemia: (6) Status post admission to intensive care unit: Subjective Patient seen and examined. Prior to surgery patient appeared anxious. She had some trouble laying flat last night. She denied any chest pain. No nausea or vomiting. Post surgery she is found to be hypotensive with systolics in the 50s. She was hypoxic on room air with sats in the high 80s. She has placed in reverse Trendelenburg and given 1 L of fluids. She was also given a 200 mcg push of phenylephrine. Her pressures came up. Chest x-ray was obtained which did not demonstrate any pneumothorax. And there does appear to be some vascular congestion. She is doing better now after some fluids and the sedatives have worn off of the surgery. Physical Exam Constitutional: well nourished and + acute distress Eyes: PERRL, conjunctivae normal, anicteric sclerae ENMT: external ear and nose normal, oropharynx normal Neck: trachea midline, no thyromegaly Respiratory: normal respiratory effort, lungs clear to auscultation no paradoxical chest wall movement Cardiovascular: RRR, no murmur, no edema Vessels: normal peripheral pulses Gastrointestinal (Abdomen): Inspection/Auscultation: abdomen normal to inspection and normal bowel sounds; abdomen not distended Musculoskeletal: Extremities: extremities normal to inspection Skin: no rashes, warm and dry Neurologic: PERRL, EOMI, accommodation nl, no face palsy, no dysarthria Psychiatric: Orientation: alert, oriented x [address] Results & Data Vital Signs (Past 12 Hours) Vital Signs Temp Pulse Pulse Resp BP BP Pulse Ox 07/18/19 10:48 92 07/18/19 10:30 60 17 113/59 L 99 07/18/19 10:16 97.5 F L 60 13 142/61 H 98 07/18/19 10:10 60 18 123/66 98 07/18/19 10:05 60 24 111/72 98 07/18/19 10:00 60 14 103/60 97 07/18/19 09:47 97.5 F L 60 16 112/57 L 95 07/18/19 09:31 97.5 F L 60 16 108/57 L 95 07/18/19 09:26 97.5 F L 60 14 101/67 96 07/18/19 09:21 97.5 F L 60 14 73/44 L 93 07/18/19 09:16 97.5 F L 60 21 59/40 L 96 07/18/19 09:11 97.5 F L 60 10 L 52/32 L 90 07/18/19 07:01 97.5 F L 32 L 15 155/59 H 95 07/18/19 06:00 44 L 21 168/58 H 95 07/18/19 04:00 97.5 F L 41 L 18 160/46 H 95 07/18/19 03:00 40 L 15 169/98 H 95 07/18/19 02:00 38 L 17 163/76 H 95 07/18/19 01:00 40 L 14 170/47 H 95 07/18/19 00:00 39 L 15 175/53 H 95 07/17/19 23:00 38 L 16 175/58 H 96 PG Care Time/CCT Total # of Minutes Spent Total Time Spent with Patient: Total time spent is greater than 50% in coordination of care (as documented) at patient's floor/unit and/or counseling patient: Critical Care Time: Yes Total Critical Care Time: 45
--- NOTE | 2019-07-18 11:07 | Anesthesiology Progress Note ---
Date of Service July 18, 2019 Anesthesia Post Procedure Vital Signs Vital Signs: Temp Pulse Pulse Resp BP BP Pulse Ox 07/18/19 10:48 92 07/18/19 10:30 60 17 113/59 L 99 07/18/19 10:16 36.4 C L 60 13 142/61 H 98 07/18/19 10:10 60 18 123/66 98 07/18/19 10:05 60 24 111/72 98 07/18/19 10:00 60 14 103/60 97 07/18/19 09:47 36.4 C L 60 16 112/57 L 95 07/18/19 09:31 36.4 C L 60 16 108/57 L 95 07/18/19 09:26 36.4 C L 60 14 101/67 96 07/18/19 09:21 36.4 C L 60 14 73/44 L 93 07/18/19 09:16 36.4 C L 60 21 59/40 L 96 07/18/19 09:11 36.4 C L 60 10 L 52/32 L 90 07/18/19 07:01 36.4 C L 32 L 15 155/59 H 95 07/18/19 06:00 44 L 21 168/58 H 95 07/18/19 04:00 36.4 C L 41 L 18 160/46 H 95 07/18/19 03:00 40 L 15 169/98 H 95 07/18/19 02:00 38 L 17 163/76 H 95 07/18/19 01:00 40 L 14 170/47 H 95 07/18/19 00:00 39 L 15 175/53 H 95 07/17/19 23:00 38 L 16 175/58 H 96 07/17/19 22:00 50 L 20 171/67 H 93 07/17/19 21:00 48 L 14 148/74 H 95 07/17/19 20:00 36.5 C 53 L 17 154/79 H 96 07/17/19 19:00 62 21 185/63 H 93 07/17/19 18:09 36.6 C 07/17/19 18:02 51 L 24 180/87 H 95 07/17/19 18:00 58 L 18 94 07/17/19 17:27 51 L 15 170/72 H 95 07/17/19 16:46 50 L 13 170/93 H 96 07/17/19 16:45 54 L 23 95 07/17/19 16:31 46 L 13 157/63 H 98 07/17/19 16:30 59 L 17 95 07/17/19 16:16 47 L 14 167/82 H 95 07/17/19 16:15 46 L 18 95 07/17/19 16:01 53 L 18 161/75 H 95 07/17/19 16:00 51 L 17 95 07/17/19 15:46 52 L 17 189/82 H 96 07/17/19 15:45 49 L 21 96 07/17/19 15:31 54 L 25 H 165/64 H 96 07/17/19 15:30 59 L 16 96 07/17/19 15:19 48 L 15 198/73 H 07/17/19 15:15 49 L 20 97 07/17/19 15:00 34 L 19 98 07/17/19 14:45 39 L 17 98 07/17/19 14:30 35 L 12 95 07/17/19 14:15 51 L 18 95 07/17/19 14:00 71 22 07/17/19 13:46 36 L 18 164/49 H 95 07/17/19 13:45 39 L 15 96 07/17/19 13:41 40 L 16 169/54 H 96 07/17/19 13:31 63 19 185/116 H 98 07/17/19 13:30 64 17 07/17/19 13:15 45 L 17 97 07/17/19 13:01 38 L 16 170/61 H 98 07/17/19 13:00 49 L 18 98 07/17/19 12:58 36.9 C 49 L 19 170/61 H 98 07/17/19 12:55 49 L 21 200/80 H 97 Transfer of Care Handoff Completed per policy Notes Mental Status: alert / awake / arousable Patient Amnestic to Procedure: Yes Nausea / Vomiting: adequately controlled Pain: adequately controlled Airway Patency, RR, SpO2: stable & adequate BP & HR: stable & adequate Hydration State: stable & adequate Anesthetic Complications: no major complications apparent
--- NOTE | 2019-07-18 12:13 | Cardiology Progress Note ---
Date of Service July 18, 2019 Assessment & Plan (1) Second degree AV block, Mobitz type II: s/p pacemaker insertion this AM, appreciate Dr. Sahni's input recover per protocol observe overnight likely d/c to home in AM restrictions reviewed ok to transfer to tele from cardiac standpoint (2) SOB (shortness of breath): likely secondary to symptomatic Mobitz II will follow as an outpatient Subjective Pt seen and examined, s/p pacemaker implant, a little sore at pocket site but otherwise feeling well. Denies sob, palpitations, lightheadedness or dizziness. Still a little somnolent from anesthesia tele reviewed: paced rhythm Review of Systems Review of Systems: All systems reviewed & are unremarkable except as noted in HPI & below Physical Exam Physical Exam: General: Awake, alert and oriented x 3. No acute distress. HEENT: Normocephalic, atraumatic. Pupils equal, round and reactive to light and accommodation. Extraocular muscles are intact. Anicteric sclera. Moist mucous membranes. Neck: No JVD. No bruit. Cardiovascular: Regular. Positive S-4. Normal S-1 and S-2. No S-3. No murmurs or rubs. Pulmonary: Clear to auscultation B/L. No rales, rhonchi or wheezing Abdomen: Bowel sounds x 4, soft. No rebound, guarding or tenderness. No organomegaly. Extremities: No clubbing, cyanosis or edema. +2 pedal pulses bilaterally. Skin: Warm and dry. Results & Data Vital Signs (Past 12 Hours) Vital Signs Temp Pulse Pulse Resp BP BP Pulse Ox 07/18/19 11:32 68 20 109/65 91 07/18/19 11:01 65 13 125/80 91 07/18/19 10:48 92 07/18/19 10:30 60 17 113/59 L 99 07/18/19 10:16 36.4 C L 60 13 142/61 H 98 07/18/19 10:10 60 18 123/66 98 07/18/19 10:05 60 24 111/72 98 07/18/19 10:00 60 14 103/60 97 07/18/19 09:47 36.4 C L 60 16 112/57 L 95 07/18/19 09:31 36.4 C L 60 16 108/57 L 95 07/18/19 09:26 36.4 C L 60 14 101/67 96 07/18/19 09:21 36.4 C L 60 14 73/44 L 93 07/18/19 09:16 36.4 C L 60 21 59/40 L 96 07/18/19 09:11 36.4 C L 60 10 L 52/32 L 90 07/18/19 07:01 36.4 C L 32 L 15 155/59 H 95 07/18/19 06:00 44 L 21 168/58 H 95 07/18/19 04:00 36.4 C L 41 L 18 160/46 H 95 07/18/19 03:00 40 L 15 169/98 H 95 07/18/19 02:00 38 L 17 163/76 H 95 07/18/19 01:00 40 L 14 170/47 H 95
[2019-07-18 17:35] LABS: Basophils # (auto) 0.02 K/uL (0-0.2); Basophils % (auto) 0.1 %; Eosinophils # (auto) 0.04 K/uL (0-0.5); Eosinophils % (auto) 0.2 %; Hematocrit (blood only) 38.4 % (37-47); Hemoglobin 13.1 g/dL (12.0-16.0); Immature Granulocytes # (auto) 0.07 K/uL (0.00-0.02); Immature Granulocytes % (auto) 0.4 %; Lymphocytes % (auto) 16.6 %; Mean Corpuscular Hemoglobin 29.6 pg (25-34); Mean Corpuscular Hgb Conc 34.1 g/dL (32-36); Mean Corpuscular Volume 86.7 fL (80-100); Mean Platelet Volume 10.1 fL (7.4-10.4); Monocytes # (auto) 1.14 K/uL (0.11-0.59); Neutrophils # (auto) 12.33 K/uL (1.4-6.5); Neutrophils % (auto) 75.7 %; Platelet Count 193 K/uL (130-400); RDW Coefficient of Variation 13.2 % (11.5-14.5); Red Blood Count 4.43 M/uL (4.2-5.4)
[2019-07-18 17:45] LABS: BUN Creatinine Ratio 15.8 (10-20); Calcium 8.2 mg/dl (8.5-10.1); Creatinine Clr Calc Pharmacy 29.8 ml/min; Est GFR (African American) 53.9; Est GFR (Non-African American) 46.5; Potassium 4.1 mmol/L (3.5-5.1)
[2019-07-18] MEDS ORDERED: HEPARIN (PORCINE) 1000 UNIT/ML 10 ML (CATH LAB USE ONLY) ONE (17:58)
[2019-07-18] MEDS ORDERED: NITROGLYCERIN/D5W 100MCG/ML 20ML SYR ONE (17:59)
[2019-07-18] MEDS ORDERED: NiCARDipine HCL INJ 2.5 MG/ML 10 ML AMP ONE (17:59)
--- NOTE | 2019-07-18 18:01 | Critical Care Progress Note ---
Date of Service July 18, 2019 Assessment & Plan (1) NSTEMI (non-ST elevated myocardial infarction): Heart code activated. Dr. Dalton is at bedside. Echo performed. EKG performed. Troponin elevated. Patient is currently being transported to the heart cath for a left heart catheterization. It is possible that the cause of her initial Mobitz type II block was actually ischemic injury. Status post heart catheterization, she will remain in the ICU. Will await cardiology recommendations. Present on Admission?: No (2) Hypotension (arterial): Hypotension was transient improved with fluids. The Levophed is now off. We will continue to monitor. Present on Admission?: No Subjective I was called to the bedside by the nurse due to hypotension. She was apparently sitting in a chair eating her food and suddenly became very nauseated and dizzy. She then went to lay down in her bed and was found to be persistently hypotensive with systolics in the 60s and 50s. We started a liter bolus of fluid and then put her on Levophed. I did a bedside echo which demonstrated a tiny pericardial effusion and normal ejection. There was evidence of pleural slide bilaterally. No clear pneumothorax seen. No obvious hematoma on the chest wall. CBC was checked and demonstrated a mild leukocytosis but normal hemoglobin. She does have a worsening bicarb and her lactate is starting to slowly go up. She had an elevated troponin. Bedside EKG did not demonstrate any overt ischemia. Cardiology was called and an urgent formal bedside echo and pacer interrogation was performed. Pacer interrogation was normal. Dr. Dalton evaluated the echo and felt that there was some RV dysfunction as the patient may be having an RV infarct. Patient was able to be weaned off levo fed and she is lying in bed currently complaining of mild dull and achy chest pain. She is clearly very anxious. Her fianc is also at bedside and is tearful. The plan now is to go ahead and proceed with a left heart catheterization. Code heart has been initiated. Physical Exam Physical Exam: General: Patient appears very anxious and a bit ashen colored. HEENT: Normocephalic. Atraumatic. EOMI. Neck: No obvious JVD Respiratory: Mild crackles bilaterally. Mild tachypnea. CVS: Warm extremities. No obvious murmurs. Bradycardic. Regular rate. MSK: Moves extremities well Neurologic: Cranial nerves II through XII intact. No obvious focal deficits. Constitutional: well nourished and + acute distress Eyes: PERRL, conjunctivae normal, anicteric sclerae ENMT: external ear and nose normal, oropharynx normal Neck: trachea midline, no thyromegaly Respiratory: normal respiratory effort, lungs clear to auscultation no paradoxical chest wall movement Cardiovascular: RRR, no murmur, no edema Vessels: normal peripheral pulses Gastrointestinal (Abdomen): Inspection/Auscultation: abdomen normal to inspection and normal bowel sounds; abdomen not distended Musculoskeletal: Extremities: extremities normal to inspection Skin: no rashes, warm and dry Neurologic: PERRL, EOMI, accommodation nl, no face palsy, no dysarthria Psychiatric: Orientation: alert, oriented x [address] Results & Data Vital Signs (Past 12 Hours) Vital Signs Temp Pulse Pulse Resp BP BP Pulse Ox 07/18/19 17:30 66 21 113/65 95 07/18/19 17:27 95 07/18/19 17:25 65 23 108/65 95 07/18/19 17:15 33 L 20 140/61 95 07/18/19 17:10 50 L 21 148/65 H 96 07/18/19 17:05 63 24 138/67 95 07/18/19 17:01 60 20 95 07/18/19 17:00 61 20 96/50 L 95 07/18/19 16:55 60 20 68/40 L 96 07/18/19 16:52 61 23 58/37 L 94 07/18/19 16:50 61 16 59/32 L 96 07/18/19 16:48 61 22 64/39 L 93 07/18/19 16:46 65 16 62/35 L 92 07/18/19 16:01 74 18 90 07/18/19 16:00 65 19 119/66 90 07/18/19 15:01 76 22 89 L 07/18/19 15:00 51 L 20 128/75 89 L 07/18/19 14:01 74 13 95 07/18/19 14:00 63 12 124/75 94 07/18/19 13:01 71 21 121/74 96 07/18/19 13:00 71 17 88 L 07/18/19 12:30 69 19 142/76 H 96 07/18/19 12:01 68 24 95 07/18/19 12:00 76 19 130/67 94 07/18/19 11:33 68 13 92 07/18/19 11:32 68 20 109/65 91 07/18/19 11:01 65 13 125/80 91 07/18/19 10:48 92 07/18/19 10:30 60 17 113/59 L 99 07/18/19 10:16 97.5 F L 60 13 142/61 H 98 07/18/19 10:10 60 18 123/66 98 07/18/19 10:05 60 24 111/72 98 07/18/19 10:00 60 14 103/60 97 07/18/19 09:47 97.5 F L 60 16 112/57 L 95 07/18/19 09:31 97.5 F L 60 16 108/57 L 95 07/18/19 09:26 97.5 F L 60 14 101/67 96 07/18/19 09:21 97.5 F L 60 14 73/44 L 93 07/18/19 09:16 97.5 F L 60 21 59/40 L 96 07/18/19 09:11 97.5 F L 60 10 L 52/32 L 90 07/18/19 07:01 97.5 F L 32 L 15 155/59 H 95 Laboratory Results 07/18/19 17:13 07/18/19 17:18 PG Care Time/CCT Total # of Minutes Spent Total Time Spent with Patient: Total time spent is greater than 50% in coordination of care (as documented) at patient's floor/unit and/or counseling patient: Critical Care Time: Yes Total Critical Care Time: 40
--- NOTE | 2019-07-18 18:41 | Cardiology Progress Note ---
Date of Service July 18, 2019 Assessment & Plan (1) Hypotension (arterial): ddx includes: pacer extravasation and possible pericardial effusion vs. inferior wall NV. pacer placement confirmed effusion ruled out will proceed with cardiac cath to rule out inferior wall NV. Spoke with patient who is anxious to proceed and asked me to speak to son, Eb I spoke with Eb and he is in agreement with cath, as is [place] will proceed with emergent cardiac cath now. Subjective Received a call from stand up comedian: Dr. Watts at approx 1700. Patient now significantly hypotensive. NSG reported pt was doing well in bed but when moved to a chair to eat dinner, became severely hypotensive, diaphoretic and dizzy. Moved back to bed and sbp of 50mmhg. Fluid bolus given, placed in trendelenburg and vasopressors started. I ordered a stat echocardiogram and contacted [employer] pacer rep to interrogate device. Pt seen and examined with rory at bedside. Upon further questioning, pt admits that she's been having chest discomfort since after ppm placement. She's been having substernal, dull pressure sensation along with dull achy pain in her left shoulder that she wrote off as due to pacemaker placement. did not notify nursing of discomfort. Still with slight chest pressure. tele reviewed: paced rhythm with episodes of sinus into the 70's. Review of Systems Review of Systems: All systems reviewed & are unremarkable except as noted in HPI & below Physical Exam Physical Exam: General: Awake, alert and oriented x 3. Diaphoretic, mildly anxious. HEENT: Normocephalic, atraumatic. Pupils equal, round and reactive to light and accommodation. Extraocular muscles are intact. Anicteric sclera. Moist mucous membranes. Neck: No JVD. No bruit. Cardiovascular: Regular. Positive S-4. Normal S-1 and S-2. No S-3. No murmurs or rubs. Pulmonary: Clear to auscultation B/L. No rales, rhonchi or wheezing Abdomen: Bowel sounds x 4, soft. No rebound, guarding or tenderness. No organomegaly. Extremities: No clubbing, cyanosis or edema. +2 pedal pulses bilaterally. Skin: Warm and dry. Results & Data Vital Signs (Past 12 Hours) Vital Signs Temp Pulse Pulse Resp BP BP Pulse Ox 07/18/19 18:00 95 08/24/19 17:53 45 L 23 150/74 H 94 07/18/19 17:50 75 25 H 138/59 L 95 07/18/19 17:46 68 22 148/79 H 97 07/18/19 17:41 71 19 153/63 H 95 07/18/19 17:30 66 21 113/65 95 07/18/19 17:27 95 07/18/19 17:25 65 23 108/65 95 07/18/19 17:15 33 L 20 140/61 95 07/18/19 17:10 50 L 21 148/65 H 96 07/18/19 17:05 63 24 138/67 95 07/18/19 17:01 60 20 95 07/18/19 17:00 61 20 96/50 L 95 07/18/19 16:55 60 20 68/40 L 96 07/18/19 16:52 61 23 58/37 L 94 07/18/19 16:50 61 16 59/32 L 96 07/18/19 16:48 61 22 64/39 L 93 07/18/19 16:46 65 16 62/35 L 92 07/18/19 16:01 74 18 90 07/18/19 16:00 65 19 119/66 90 07/18/19 15:01 76 22 89 L 07/18/19 15:00 51 L 20 128/75 89 L 07/18/19 14:01 74 13 95 07/18/19 14:00 63 12 124/75 94 07/18/19 13:01 71 21 121/74 96 07/18/19 13:00 71 17 88 L 07/18/19 12:30 69 19 142/76 H 96 07/18/19 12:01 68 24 95 07/18/19 12:00 76 19 130/67 94 07/18/19 11:33 68 13 92 07/18/19 11:32 68 20 109/65 91 07/18/19 11:01 65 13 125/80 91 07/18/19 10:48 92 07/18/19 10:30 60 17 113/59 L 99 07/18/19 10:16 36.4 C L 60 13 142/61 H 98 07/18/19 10:10 60 18 123/66 98 07/18/19 10:05 60 24 111/72 98 08/24/19 10:00 60 14 103/60 97 07/18/19 09:47 36.4 C L 60 16 112/57 L 95 07/18/19 09:31 36.4 C L 60 16 108/57 L 95 07/18/19 09:26 36.4 C L 60 14 101/67 96 07/18/19 09:21 36.4 C L 60 14 73/44 L 93 07/18/19 09:16 36.4 C L 60 21 59/40 L 96 07/18/19 09:11 36.4 C L 60 10 L 52/32 L 90 07/18/19 07:01 36.4 C L 32 L 15 155/59 H 95
--- NOTE | 2019-07-18 18:51 | Cardiac Catheterization ---
Cardiac Cath Procedure Full Procedure Date July 18, 2019 Pre-Procedure Diagnosis Pre-Procedure Diagnosis: Angina AUC Score AUC Score: 2 Post-Procedure Diagnosis Post-Procedure Diagnosis: Severe CAD Procedure(s) Performed Procedure(s) Performed: Coronary Angiography [employer] Driver Ana Haddad Estimated Blood Loss Estimated Blood Loss: None Medication(s) Medication(s): Lidocaine 1% Summary of Findings Significant 3vd 80% bifurcating LAD/Diag 90% Circ 90% OM2 Hemodynamics Rest Ao:: 105/41 Final Ao: 108/43 LV: nd Recommendations Recommendations: Medical Therapy and/or Counseling Radiation Exposure (mGy) 646 Contrast (mls) 55 Fluids (cc crystalloids) Fluids (cc crystalloids): 500 Procedural Complication(s) None Disposition ICU 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 I agree with the assessment and plan as stated with the following exceptions. 89 yo F with lightheadedness x 1 week presents to the ER, and was found to have Type II heart block requiring a pacemaker. She denies fevers, chills, chest pain, dyspnea or other symptoms aside from her lightheadedness. Workup reveals no evidence of active ischemia, valvular disease or infection present. Physical exam reveals a well developed female in no acute distress who is mentating clearly. Heart exam reveals bradycardia without murmurs, gallops or rubs. Lungs are clear to auscultation bilaterally. No peripheral edema is present. Assessment: Type II heart block. Agree with plan to place pacemaker. NPO p MN in preparation for procedure. Pacer pads in place. Appreciate cardiology recommendations. DO Tenzin
[2019-07-18] MEDS: PRAVASTATIN SOD 10 MG TAB PO SCH (20:19)
[2019-07-18] MEDS: NORMOSOL-R 1,000 ML IV SCH (21:10)
[2019-07-19 04:17] LABS: Hematocrit (blood only) 37.9 % (37-47); Hemoglobin 12.8 g/dL (12.0-16.0); Mean Corpuscular Hemoglobin 29.3 pg (25-34); Mean Corpuscular Hgb Conc 33.8 g/dL (32-36); Mean Corpuscular Volume 86.7 fL (80-100); Mean Platelet Volume 9.7 fL (7.4-10.4); Platelet Count 155 K/uL (130-400); RDW Coefficient of Variation 13.4 % (11.5-14.5); RDW Standard Deviation 42.9 fL (36.4-46.3); Red Blood Count 4.37 M/uL (4.2-5.4); White Blood Count 9.57 K/uL (4.8-10.8)
[2019-07-19 04:35] LABS: Albumin Level 2.7 gm/dl (3.4-5.0); BUN Creatinine Ratio 21.2 (10-20); Calcium 8.2 mg/dl (8.5-10.1); Creatinine Clr Calc Pharmacy 37.6 ml/min; Est GFR (African American) 71.4; Est GFR (Non-African American) 61.6; Potassium 4.1 mmol/L (3.5-5.1)
[2019-07-19 04:55] LABS: Phosphorus 3.3 mg/dl (2.5-4.9); Troponin I 0.312 ng/ml (0-0.045)
[2019-07-19 04:56] LABS: Albumin Globulin Ratio 1.1 (0.9-2); Bilirubin,Total 1.1 mg/dl (0.2-1); Globulin 2.5 gm/dl (2.5-4.0); Total Protein 5.2 gm/dl (6.4-8.2)
[2019-07-19 05:13] LABS: Lyme Ab IgG w/WB Rflx Negative (Negative); Lyme Ab IgM w/WB Rflx Negative (Negative)
[2019-07-19] MEDS: ACETAMINOPHEN 325 MG TAB PO PRN (07:57)
[2019-07-19] MEDS: ASPIRIN 81 MG ECTAB PO SCH (07:58)
[2019-07-19] MEDS: CHOLECALCIFEROL 1,000 UNITS TAB PO SCH (07:58)
[2019-07-19] MEDS: NORMOSOL-R 1,000 ML IV SCH (07:58)
[2019-07-19] MEDS: PANTOprazole 40 MG TAB PO SCH (07:58)
--- NOTE | 2019-07-19 08:13 | XRay Report ---
XR chest 2V routine HISTORY: 89 years-old Female EXACT TIME ORDERED Evaluate for pneumothorax and l status post placemen t of a left subclavian pacer COMPARISON: Chest radiograph 07/18/2019 TECHNIQUE: PA and lateral views of the chest FINDINGS: Left subclavian pacer is unchanged. No postprocedural pneumothorax. Cardiac silhouette is upper limit s of normal in size. Biapical pleural-parenchymal scarring. Pulmonary vascular congestion with mild i nterstitial coarsening a stable to slightly progressed. Small pleural effusions with bibasilar opacit ies. Degenerative changes of the shoulders and spine. IMPRESSION: 1. Mild pulmonary edema stable to slightly progressed from comparison. 2. Small pleural effusions with bibasilar opacities suggestive of probable atelectasis. 3. No pneumothorax. The above report was generated using voice recognition software. It may contain grammatical, syntax o r spelling errors. Electronically signed by: Ashwin Aguilar M.D. 07/19/2019 8:12 AM
--- NOTE | 2019-07-19 09:01 | Critical Care Progress Note ---
Date of Service July 19, 2019 Assessment & Plan (1) Admitted to intensive care unit: Patient appears to be hemodynamically stable today. Her blood pressure is actually starting to go up. IV fluids have been stopped. She does have some demonstration of mild pulmonary congestion on the chest x-ray. She would benefit from another day of telemetry monitoring and this can be done on the f colin. She needs to ambulate as much she can. She also has some atelectasis on the chest x-ray and she is at risk for pneumonia if she does not adhere to some pulmonary toilet and ambulation. Have ordered incentive spirometry. Continue aspirin, statin and she will likely need a beta-divya. I have added DVT prophylaxis. Transfer to floor with telemetry (2) Second degree AV block, Mobitz type II: (3) Status post cardiac pacemaker procedure: (4) SOB (shortness of breath): (5) Pulmonary edema cardiac cause: (6) Coronary artery disease: Subjective Patient is status post left heart cath yesterday. Heart cath demonstrated three-vessel disease with luminal abnormalities up to 90%. Patient says that she still feels weak and cannot stand up without assistance. She was able to eat some of her breakfast. Her fianc is at the bedside. She denies any substernal chest pain but does have some pain around the pacemaker insertion site. She has no fevers. She had no night sweats. She has minimal cough. No nausea this morning. Her blood pressure is creeping upwards and the nurse stopped her fluids which I agree with. . Physical Exam Constitutional: well nourished; no acute distress Eyes: PERRL, conjunctivae normal, anicteric sclerae ENMT: external ear and nose normal, oropharynx normal Neck: trachea midline, no thyromegaly Respiratory: + paradoxical chest wall movement Bilateral crackles with diminished breath sounds at the bases. Cardiovascular: RRR, no murmur, no edema Vessels: normal peripheral pulses Gastrointestinal (Abdomen): Inspection/Auscultation: abdomen normal to inspection and normal bowel sounds; abdomen not distended Musculoskeletal: Extremities: extremities normal to inspection Skin: no rashes, warm and dry Neurologic: PERRL, EOMI, accommodation nl, no face palsy, no dysarthria Psychiatric: Orientation: alert, oriented x [address] Results & Data Vital Signs (Past 12 Hours) Vital Signs Temp Pulse Resp BP Pulse Ox 07/19/19 08:31 68 22 164/80 H 97 07/19/19 08:00 97.9 F 70 22 137/69 94 07/19/19 07:30 130/67 07/19/19 07:00 66 19 102/53 L 93 07/19/19 06:30 67 16 116/61 94 07/19/19 06:00 66 29 H 133/67 94 07/19/19 05:30 68 18 115/72 92 07/19/19 05:00 72 18 136/71 94 07/19/19 04:30 76 20 134/71 93 07/19/19 04:07 97.7 F 07/19/19 04:00 72 22 131/65 95 07/19/19 03:30 65 19 85/42 L 94 07/19/19 03:01 65 18 94 07/19/19 03:00 64 19 104/48 L 94 07/19/19 02:31 65 19 93 07/19/19 02:30 65 19 109/50 L 93 07/19/19 02:00 65 19 95/49 L 93 07/19/19 01:30 63 17 98/51 L 96 07/19/19 01:00 63 19 86/41 L 94 07/19/19 00:30 64 20 91/50 L 95 07/19/19 00:00 65 19 89/50 L 93 07/18/19 23:30 61 20 126/56 L 95 07/18/19 23:21 98.1 F 07/18/19 23:00 63 19 95/48 L 90 07/18/19 22:35 65 20 98/48 L 94 07/18/19 22:30 64 21 76/49 L 95 07/18/19 22:00 63 20 90/48 L 95 07/18/19 21:30 67 20 106/59 L 94 07/18/19 21:18 70 25 H 135/72 95 07/18/19 21:06 69 27 H 82/44 L 88 L 07/18/19 21:00 65 18 70/46 L 90 Laboratory Results 07/19/19 04:05 07/19/19 04:05 Diagnostic Findings Chest x-ray reviewed with pacer placement and wires noted. There are some interstitial infiltrates and bilateral small effusion seen. This pattern likely represents some degree of pulmonary edema. ECG Additional Comments: Atrial-sensed ventricular-paced rhythm Abnormal ECG When compared with ECG of 18-JUL-2019 16:58, (unconfirmed) Vent. rate has increased BY 19 BPM PG Care Time/CCT Total # of Minutes Spent Total Time Spent with Patient: Total time spent is greater than 50% in coordination of care (as documented) at patient's floor/unit and/or counseling patient: (1) Coronary artery disease Associated angina: with unspecified angina Coronary Disease-Associated Artery/Lesion type: unspecified vessel or lesion type [place] vs. transplanted heart: [place] heart Qualified Code(s): I25.119 - Atherosclerotic heart disease of [place] coronary artery with unspecified angina pectoris
--- NOTE | 2019-07-19 09:15 | Hospitalist Progress Note ---
Date of Service July 19, 2019 Assessment & Plan (1) Second degree AV block, Mobitz type II: This is an 89 year old F who has significant past medical history of primary hyperparathyroidism, HTN, HLD, prediabetes, GERD, senile osteoporosis, transient constipation who presents to [facility] ED secondary to LIM x1 week and being referred by PCP. In ED patient was found to be bradycardic which prompted ECG. ECG revealed sinus rhythm with Mobitz type II second-degree AV block at 48 bpm. Her lab work was otherwise unremarkable including CBC, CMP, troponin, TSH, magnesium Chest x-ray revealed no acute abnormality Patient was seen and evaluated by cardiology Dr. Zapata, permanent pacemaker advised Echocardiogram performed which revealed normal left ventricular wall motion, LVEF 65 to 70%, mild mitral regurg Underwent dual chamber pacemaker today 07/[address] Sahni 07/18 s/p PPM had CP and Heart Alert called, LHC revealed no target lesions, Max Med Therapy Transferred back to ICU, Still feels off PCU Saturday follow labs (2) Hypertension: Resolved (3) Hyperlipidemia: continue statin (4) Pre-diabetes: A1C 5.9 03/13 (5) GERD (gastroesophageal reflux disease): continue PPI (6) DVT prophylaxis: SCDS/TEDS Disposition: D/C to home 2-3 days. Follow up: PCP Dr. Wilcox upon discharge, Dr Dalton or Jodi on DC as well ROS-No Headache, No Visual Changes, No Nausea, No Vomiting, No Fever, No Chills, No Neck Pain or Stiffness, No Palpitations, No SOB, No LIM, No Cough, No Sputum, No Wheezing, No Abdominal Pain, No Diarrhea, No Hematemesis, No Hemoptysis, No Unexpected Weight Loss, No Flank pain, No Melena, No Hematochezia, No Frequency, No Urgency, No Burning, No Hematuria, No Rashes, No Diaphoresis. Appetite is Normal, Feels off, Fatigue, Pacer Site sore Physical Exam Gen-AAO x 3, NAD, Afebrile, Pacer wound checked, tender Head-NCAT, EOMI, PERRLA, Anicteric Sclera, No Posterior Pharyngeal Erythema Neck-Supple, No JVD, No Thyromegaly, No Masses, No LAD, No Bruits Lungs-Clear to Auscultation Bilaterally, No Rales, No Rhonchi, No Wheezing, No Crepitus Chest-No S4, +S1, +S2, No S3, No Murmurs, No Rubs, No Gallops, No Ectopy Abdomen-Soft, Bowel Sounds Present, Non Tender, Non Distended, No Hepatomegaly, No Splenomegaly, No Palpable Masses, No Rebound, No Rigidity, No Guarding Musculoskeletal-Full Range of Motion Bilaterally, No CVAT Extremities-No Cyanosis, No Clubbing, No Edema Nuero-Cranial Nerves II-XII grossly intact, Motor WNL, DTRs WNL, Strength WNL, Non Focal Psych-Normal Mood Results & Data Vital Signs (Past 12 Hours) Vital Signs Temp Pulse Resp BP Pulse Ox 07/19/19 08:31 68 22 164/80 H 97 07/19/19 08:00 36.6 C 70 22 137/69 94 07/19/19 07:30 130/67 07/19/19 07:00 66 19 102/53 L 93 07/19/19 06:30 67 16 116/61 94 07/19/19 06:00 66 29 H 133/67 94 07/19/19 05:30 68 18 115/72 92 07/19/19 05:00 72 18 136/71 94 07/19/19 04:30 76 20 134/71 93 07/19/19 04:07 36.5 C 07/19/19 04:00 72 22 131/65 95 07/19/19 03:30 65 19 85/42 L 94 07/19/19 03:01 65 18 94 07/19/19 03:00 64 19 104/48 L 94 07/19/19 02:31 65 19 93 07/19/19 02:30 65 19 109/50 L 93 07/19/19 02:00 65 19 95/49 L 93 07/19/19 01:30 63 17 98/51 L 96 07/19/19 01:00 63 19 86/41 L 94 07/19/19 00:30 64 20 91/50 L 95 07/19/19 00:00 65 19 89/50 L 93 07/18/19 23:30 61 20 126/56 L 95 07/18/19 23:21 36.7 C 07/18/19 23:00 63 19 95/48 L 90 07/18/19 22:35 65 20 98/48 L 94 07/18/19 22:30 64 21 76/49 L 95 07/18/19 22:00 63 20 90/48 L 95 07/18/19 21:30 67 20 106/59 L 94 07/18/19 21:18 70 25 H 135/72 95 Current Diagnoses Hyperlipidemia, unspecified (07/17/19) Essential (primary) hypertension (07/17/19) Non-ST elevation (NSTEMI) myocardial infarction (07/17/19) Atherosclerotic heart disease of [place] coronary artery with unspecified angina pectoris (07/17/19) Atrioventricular block, second degree (07/17/19) Left ventricular failure, unspecified (07/17/19) Hypotension, unspecified (07/17/19) Gastro-esophageal reflux disease without esophagitis (07/17/19) Shortness of breath (07/17/19) Prediabetes (07/17/19) Encounter for prophylactic measures, unspecified (07/17/19) Other specified health status (07/17/19) Presence of cardiac pacemaker (07/17/19) Allergies Penicillins Allergy (Severe, Verified 07/17/19 14:52) edema loratadine Allergy (Intermediate, Verified 07/18/19 10:08) Rash meperidine [From Demerol] Allergy (Intermediate, Unverified 07/18/19 10:08) Redness of Skin Qefjvmp-Par-Ylb Reductase Inhibitor Adverse Reaction (Intermediate, Verified 07/17/19 14:52) muscle pain alendronate sodium [From Fosamax] Adverse Reaction (Mild, Verified 07/18/19 10:08) Heartburn lovastatin Adverse Reaction (Mild, Verified 07/17/19 14:52) Muscle Pain Height/Weight/Isolation Height 5 ft 3 in Weight 55.7 kg Chemistry 07/17/19 07/18/19 07/18/19 13:26 04:32 17:18 Sodium 139 141 141 Potassium 4.1 4.0 4.1 Chloride 108 H 111 H 112 H Carbon Dioxide 24 22 20 L Anion Gap 7.0 8.0 9.0 BUN 12 17 17 Creatinine 0.92 0.91 1.06 Glucose 101 H 109 H 145 H 07/19/19 04:05 Sodium 141 Potassium 4.1 Chloride 111 H Carbon Dioxide 24 Anion Gap 6.0 BUN 18 Creatinine 0.84 Glucose 119 H Urinalysis 07/17/19 20:20 Urine Color Yellow Urine Appearance Clear Urine pH 6.0 Ur Specific [place] 1.011 Urine Protein Negative Urine Glucose (UA) Negative Urine Ketones Trace H Urine Blood Negative Urine Nitrite Negative Urine Bilirubin Negative
--- NOTE | 2019-07-19 10:42 | Cardiology Progress Note ---
Date of Service July 19, 2019 Assessment & Plan (1) Second degree AV block, Mobitz type II: s/p medtronic dual chamber ppm placement 07/19/19 will arrange outpatient follow up with wound check with Dr. 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 No events overnight per NSG, has maintained good bp without need for vasopressors. Denies cp, sob, palpitations, lightheadedness or dizziness. tele reviewed: paced rhythm alternating with sinus 70's Review of Systems Review of Systems: All systems reviewed & are unremarkable except as noted in HPI & below Physical Exam Physical Exam: General: Awake, alert and oriented x 3. No acute distress. HEENT: Normocephalic, atraumatic. Pupils equal, round and reactive to light and accommodation. Extraocular muscles are intact. Anicteric sclera. Moist mucous membranes. Neck: No JVD. No bruit. Cardiovascular: Regular. Positive S-4. Normal S-1 and S-2. No S-3. No murmurs or rubs. Pulmonary: Clear to auscultation B/L. No rales, rhonchi or wheezing Abdomen: Bowel sounds x 4, soft. No rebound, guarding or tenderness. No organomegaly. Extremities: No clubbing, cyanosis or edema. +2 pedal pulses bilaterally. Skin: Warm and dry. Results & Data Vital Signs (Past 12 Hours) Vital Signs Temp Pulse Resp BP Pulse Ox 07/19/19 08:31 68 22 164/80 H 97 07/19/19 08:00 36.6 C 70 22 137/69 94 07/19/19 07:30 130/67 07/19/19 07:00 66 19 102/53 L 93 07/19/19 06:30 67 16 116/61 94 07/19/19 06:00 66 29 H 133/67 94 07/19/19 05:30 68 18 115/72 92 07/19/19 05:00 72 18 136/71 94 07/19/19 04:30 76 20 134/71 93 07/19/19 04:07 36.5 C 07/19/19 04:00 72 22 131/65 95 07/19/19 03:30 65 19 85/42 L 94 07/19/19 03:01 65 18 94 07/19/19 03:00 64 19 104/48 L 94 07/19/19 02:31 65 19 93 07/19/19 02:30 65 19 109/50 L 93 07/19/19 02:00 65 19 95/49 L 93 07/19/19 01:30 63 17 98/51 L 96 07/19/19 01:00 63 19 86/41 L 94 07/19/19 00:30 64 20 91/50 L 95 07/19/19 00:00 65 19 89/50 L 93 07/18/19 23:30 61 20 126/56 L 95 07/18/19 23:21 36.7 C 07/18/19 23:00 63 19 95/48 L 90 (1) Coronary artery disease Coronary Disease-Associated Artery/Lesion type: unspecified vessel or lesion type [place] vs. transplanted heart: [place] heart Associated angina: with unspecified angina Qualified Code(s): I25.119 - Atherosclerotic heart disease of [place] coronary artery with unspecified angina pectoris
[2019-07-19] MEDS: ENOXAPARIN INJ 30 MG/0.3 ML SYR SQ SCH (11:30)
[2019-07-19] MEDS: LISINOPRIL 5 MG TAB PO SCH (13:59)
[2019-07-19] MEDS: PRAVASTATIN SOD 10 MG TAB PO SCH (19:56)
[2019-07-20 05:50] LABS: Hematocrit (blood only) 39.7 % (37-47); Hemoglobin 13.5 g/dL (12.0-16.0); Mean Corpuscular Hemoglobin 29.7 pg (25-34); Mean Corpuscular Volume 87.4 fL (80-100); Mean Platelet Volume 9.9 fL (7.4-10.4); Platelet Count 155 K/uL (130-400); RDW Coefficient of Variation 13.6 % (11.5-14.5); RDW Standard Deviation 43.4 fL (36.4-46.3); Red Blood Count 4.54 M/uL (4.2-5.4); White Blood Count 8.54 K/uL (4.8-10.8)
[2019-07-20 06:22] LABS: Albumin Level 3.2 gm/dl (3.4-5.0); BUN Creatinine Ratio 10.4 (10-20); Calcium 9.2 mg/dl (8.5-10.1); Creatinine Clr Calc Pharmacy 30.6 ml/min; Est GFR (African American) 55.8; Est GFR (Non-African American) 48.2; Potassium 4.2 mmol/L (3.5-5.1)
[2019-07-20 06:23] LABS: Bilirubin,Total 1.5 mg/dl (0.2-1); Globulin 3.1 gm/dl (2.5-4.0); Total Protein 6.3 gm/dl (6.4-8.2)
--- NOTE | 2019-07-20 07:59 | Hospitalist Progress Note ---
Date of Service July 20, 2019 Assessment & Plan (1) Second degree AV block, Mobitz type II: This is an 89 year old F who has significant past medical history of primary hyperparathyroidism, HTN, HLD, prediabetes, GERD, senile osteoporosis, transient constipation who presents to [facility] ED secondary to LIM x1 week and being referred by PCP. In ED patient was found to be bradycardic which prompted ECG. ECG revealed sinus rhythm with Mobitz type II second-degree AV block at 48 bpm. Her lab work was otherwise unremarkable including CBC, CMP, troponin, TSH, magnesium Chest x-ray revealed no acute abnormality Patient was seen and evaluated by cardiology Dr. Zapata, permanent pacemaker advised Echocardiogram performed which revealed normal left ventricular wall motion, LVEF 65 to 70%, mild mitral regurg Underwent dual chamber pacemaker today 07/[address] Sahni 07/18 s/p PPM had CP and Heart Alert called, LHC revealed no target lesions, Max Med Therapy Transferred back to ICU, Still feels off Tele Still not feeling well, PT/OT eval, May need SNF follow labs (2) Hypertension: Resolved (3) Hyperlipidemia: continue statin (4) Pre-diabetes: A1C 5.9 03/13 (5) GERD (gastroesophageal reflux disease): continue PPI (6) DVT prophylaxis: SCDS/TEDS Disposition: D/C to home c C v SNF Follow up: PCP Dr. Wilcox upon discharge, Dr Dalton or Jodi on DC as well Labs checked ROS-No Headache, No Visual Changes, No Nausea, No Vomiting, No Fever, No Chills, No Neck Pain or Stiffness, No Palpitations, No SOB, No LIM, No Cough, No Sputum, No Wheezing, No Abdominal Pain, No Diarrhea, No Hematemesis, No Hemoptysis, No Unexpected Weight Loss, No Flank pain, No Melena, No Hematochezia, No Frequency, No Urgency, No Burning, No Hematuria, No Rashes, No Diaphoresis. Appetite is Normal, Still Feels off, Fatigue, Pacer Site sore Physical Exam Gen-AAO x 3, NAD, Afebrile, Pacer wound checked, tender, no bleeding Head-NCAT, EOMI, PERRLA, Anicteric Sclera, No Posterior Pharyngeal Erythema Neck-Supple, No JVD, No Thyromegaly, No Masses, No LAD, No Bruits Lungs-Clear to Auscultation Bilaterally, No Rales, No Rhonchi, No Wheezing, No Crepitus Chest-No S4, +S1, +S2, No S3, No Murmurs, No Rubs, No Gallops, No Ectopy Abdomen-Soft, Bowel Sounds Present, Non Tender, Non Distended, No Hepatomegaly, No Splenomegaly, No Palpable Masses, No Rebound, No Rigidity, No Guarding Musculoskeletal-Full Range of Motion Bilaterally, No CVAT Extremities-No Cyanosis, No Clubbing, No Edema Nuero-Cranial Nerves II-XII grossly intact, Motor WNL, DTRs WNL, Strength WNL, Non Focal Psych-Normal Mood Results & Data Vital Signs (Past 12 Hours) Vital Signs Temp Pulse Resp BP Pulse Ox 07/20/19 04:44 36.5 C 66 16 153/79 H 97 07/19/19 23:47 36.9 C 65 16 136/70 95
--- NOTE | 2019-07-20 08:24 | Anesthesiology Progress Note ---
Date of Service July 20, 2019 Anesthesia Post Procedure Vital Signs Vital Signs: Temp Pulse Pulse Pulse Resp BP BP 07/20/19 08:00 36.4 C L 67 18 154/68 H 07/20/19 04:44 36.5 C 66 16 153/79 H 07/19/19 23:47 36.9 C 65 16 136/70 07/19/19 19:25 36.7 C 66 16 143/73 H 07/19/19 15:57 36.8 C 68 18 160/71 H 07/19/19 15:00 65 17 128/64 07/19/19 14:00 67 19 129/64 07/19/19 13:00 68 17 137/66 07/19/19 12:00 36.8 C 64 23 138/63 07/19/19 11:00 67 22 109/65 07/19/19 10:00 73 22 130/88 07/19/19 09:00 71 21 129/75 07/19/19 08:31 68 22 164/80 H Pulse Ox 07/20/19 08:00 94 07/20/19 04:44 97 07/19/19 23:47 95 07/19/19 19:25 93 07/19/19 15:57 98 07/19/19 15:00 96 07/19/19 14:00 95 07/19/19 13:00 98 07/19/19 12:00 95 07/19/19 11:00 92 07/19/19 10:00 92 07/19/19 09:00 94 07/19/19 08:31 97 Pain Intensity Left Chest: Pain Intensity: 1 Notes Mental Status: alert / awake / arousable and participated in evaluation Patient Amnestic to Procedure: Yes Nausea / Vomiting: adequately controlled Pain: adequately controlled Airway Patency, RR, SpO2: stable & adequate BP & HR: stable & adequate Hydration State: stable & adequate Neuraxial Anesthesia: was administered Anesthetic Complications: no major complications apparent and Pt Satisfied with anesthetic care
--- NOTE | 2019-07-20 08:57 | Cardiology Progress Note ---
Date of Service July 20, 2019 Assessment & Plan (1) Second degree AV block, Mobitz type II: s/p medtronic dual chamber ppm placement 07/19/19 will arrange outpatient follow up with wound check with Dr. 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 Has been ambulatory in room without difficulties. Prior difficulties with dizziness and lightest have improved. Moved bowels for first time this morning. No acute complaints currently. Pacemaker site healing well Review of Systems Review of Systems: All systems reviewed & are unremarkable except as noted in HPI & below Physical Exam Constitutional: WD/WN, vitals as above Eyes: PERRL, conjunctivae normal, anicteric sclerae ENMT: external ear and nose normal, oropharynx normal Neck: trachea midline, no thyromegaly Respiratory: normal respiratory effort, lungs clear to auscultation Cardiovascular: Rate/Rhythm: regular rate and regular rhythm Heart Sounds: normal S1 and normal S2; no gallop and no murmur Palpation: normal PMI Vessels: normal carotid upstroke and radial pulses present; no JVD and no carotid bruit Extremities: no edema Chest (Breasts): Chest: + pacemaker (Site bandaged without drainage no surrounding hematoma no inappropriate tenderness) Gastrointestinal (Abdomen): normal bowel sounds, soft, nontender, no hepatosplenomegaly Musculoskeletal: no cyanosis or clubbing, extremities motor strength 5/5 Right radial access site healing Skin: no rashes, warm and dry Neurologic: PERRL, EOMI, accommodation nl, no face palsy, no dysarthria Psychiatric: A+Ox3, euthymic affect Results & Data Vital Signs (Past 12 Hours) Vital Signs Temp Pulse Pulse Resp BP Pulse Ox 07/20/19 08:00 36.4 C L 67 18 154/68 H 94 07/20/19 04:44 36.5 C 66 16 153/79 H 97 07/19/19 23:47 36.9 C 65 16 136/70 95 Laboratory Results Laboratory Results - last 24 hr 07/19/19 07/20/19 07/20/19 11:32 05:26 05:26 WBC 8.54 RBC 4.54 Hgb 13.5 Hct 39.7 MCV 87.4 MCH 29.7 MCHC 34.0 RDW Std Deviation 43.4 RDW Coeff of Ashley 13.6 Plt Count 155 MPV 9.9 Sodium 141 Potassium 4.2 Chloride 108 H Carbon Dioxide 27 Anion Gap 6.0 BUN 11 Creatinine 1.03 Est Cr Clr Drug Dosing 30.6 Est GFR ( Amer) 55.8 Est GFR (Non-Af Amer) 48.2 BUN/Creatinine Ratio 10.4 Glucose 176 H POC Glucose 98 Calcium 9.2 Total Bilirubin 1.5 H AST 19 ALT 17 Alkaline Phosphatase 84 Total Protein 6.3 L D Albumin 3.2 L Globulin 3.1 Albumin/Globulin Ratio 1.0 (1) Coronary artery disease Coronary Disease-Associated Artery/Lesion type: unspecified vessel or lesion type [place] vs. transplanted heart: [place] heart Associated angina: with unspecified angina Qualified Code(s): I25.119 - Atherosclerotic heart disease of [place] coronary artery with unspecified angina pectoris
[2019-07-20] MEDS: METOPROLOL SUCC 25MG EXT REL TAB PO SCH (09:53)
[2019-07-20] MEDS: PANTOprazole 40 MG TAB PO SCH (09:54)
[2019-07-20] MEDS: ASPIRIN 81 MG ECTAB PO SCH (09:55)
[2019-07-20] MEDS: LISINOPRIL 5 MG TAB PO SCH (09:55)
[2019-07-20] MEDS: ENOXAPARIN INJ 30 MG/0.3 ML SYR SQ SCH (09:56)
[2019-07-20] MEDS: MAGNESIUM OXIDE 400 MG TAB PO SCH (12:23)
--- NOTE | 2019-07-20 16:28 | Cardiology Progress Note ---
Date of Service July 20, 2019 Assessment & Plan (1) Status post cardiac pacemaker procedure: The pacemaker itself appears to be working very well with good measurements, and lead position on x-ray and the site looks good. I change the dressing today, we can remove it tomorrow and since she has been in the hospital long enough I do not need to see her for a postoperative wound check. She can follow-up in [facility] pacer clinic in [facility]. Subjective She is feeling well this morning, she has minimal incisional discomfort. Physical Exam Physical Exam: Pacemaker site looks clean and dry, no swelling, minimal ecchymosis. Dressing changed. Results & Data Vital Signs (Past 12 Hours) Vital Signs Temp Pulse Pulse Pulse Resp BP BP 07/20/19 15:51 36.9 C 65 20 07/20/19 15:42 65 163/74 H 07/20/19 12:00 36.4 C L 68 18 137/79 07/20/19 08:00 36.4 C L 67 18 154/68 H 07/20/19 04:44 36.5 C 66 16 153/79 H Pulse Ox 07/20/19 15:51 96 07/20/19 15:42 07/20/19 12:00 94 07/20/19 08:00 94 07/20/19 04:44 97 Diagnostic Findings Telemetry: Normal pacemaker function Chest x-ray: Good lead position, no pneumothorax Pacemaker evaluation: Excellent pacing and sensing characteristics in both leads both in the afternoon postoperatively and the next morning. PG Care Time/CCT Total # of Minutes Spent Total Time Spent with Patient: Total time spent is greater than 50% in coordination of care (as documented) at patient's floor/unit and/or counseling patient:
[2019-07-20] MEDS: PRAVASTATIN SOD 10 MG TAB PO SCH (20:15)
[2019-07-21 07:01] LABS: Hematocrit (blood only) 37.4 % (37-47); Hemoglobin 12.5 g/dL (12.0-16.0); Mean Corpuscular Hemoglobin 29.2 pg (25-34); Mean Corpuscular Hgb Conc 33.4 g/dL (32-36); Mean Corpuscular Volume 87.4 fL (80-100); Mean Platelet Volume 9.9 fL (7.4-10.4); Platelet Count 147 K/uL (130-400); RDW Coefficient of Variation 13.5 % (11.5-14.5); Red Blood Count 4.28 M/uL (4.2-5.4); White Blood Count 5.97 K/uL (4.8-10.8)
[2019-07-21 07:37] LABS: Albumin Level 3.2 gm/dl (3.4-5.0); BUN Creatinine Ratio 15.4 (10-20); Calcium 9.2 mg/dl (8.5-10.1); Creatinine Clr Calc Pharmacy 41.5 ml/min; Est GFR (African American) 80.6; Est GFR (Non-African American) 69.5; Potassium 3.9 mmol/L (3.5-5.1)
[2019-07-21 07:40] LABS: Albumin Globulin Ratio 1.1 (0.9-2); Bilirubin,Total 1.6 mg/dl (0.2-1); Total Protein 6.2 gm/dl (6.4-8.2)
[2019-07-21] MEDS: MAGNESIUM OXIDE 400 MG TAB PO SCH (08:12)
[2019-07-21] MEDS: ASPIRIN 81 MG ECTAB PO SCH (08:12)
[2019-07-21] MEDS: LISINOPRIL 5 MG TAB PO SCH (08:12)
[2019-07-21] MEDS: PANTOprazole 40 MG TAB PO SCH (08:13)
[2019-07-21] MEDS: METOPROLOL SUCC 25MG EXT REL TAB PO SCH (08:13)
--- NOTE | 2019-07-21 08:44 | Hospitalist Progress Note ---
Date of Service July 21, 2019 Assessment & Plan (1) Second degree AV block, Mobitz type II: This is an 89 year old F who has significant past medical history of primary hyperparathyroidism, HTN, HLD, prediabetes, GERD, senile osteoporosis, transient constipation who presents to [facility] ED secondary to ILM x1 week and being referred by PCP. In ED patient was found to be bradycardic which prompted ECG. ECG revealed sinus rhythm with Mobitz type II second-degree AV block at 48 bpm. Her lab work was otherwise unremarkable including CBC, CMP, troponin, TSH, magnesium Chest x-ray revealed no acute abnormality Patient was seen and evaluated by cardiology Dr. Zapata, permanent pacemaker advised Echocardiogram performed which revealed normal left ventricular wall motion, LVEF 65 to 70%, mild mitral regurg Underwent dual chamber pacemaker today 07/[address] Sahni 07/18 s/p PPM had CP and Heart Alert called, LHC revealed no target lesions, Max Med Therapy Transferred back to ICU, Still feels off Tele Still not feeling well, PT/OT eval noted, Rec Home c BF follow labs, OOB (2) Hypertension: BP still up, defer to cards (3) Hyperlipidemia: continue statin (4) Pre-diabetes: A1C 5.9 03/13 (5) GERD (gastroesophageal reflux disease): continue PPI (6) DVT prophylaxis: SCDS/TEDS Disposition: D/C to home hopefully in am Follow up: PCP Dr. Wilcox upon discharge, Dr Dalton or Jodi on DC as well Labs checked ROS-No Headache, No Visual Changes, No Nausea, No Vomiting, No Fever, No Chills, No Neck Pain or Stiffness, No Palpitations, No SOB, No LIM, No Cough, No Sputum, No Wheezing, No Abdominal Pain, No Diarrhea, No Hematemesis, No Hemoptysis, No Unexpected Weight Loss, No Flank pain, No Melena, No Hematochezia, No Frequency, No Urgency, No Burning, No Hematuria, No Rashes, No Diaphoresis. Appetite is Normal, Still Feels off, Fatigue, Pacer Site sore Physical Exam Gen-AAO x 3, NAD, Afebrile, Pacer wound checked, tender, no bleeding Head-NCAT, EOMI, PERRLA, Anicteric Sclera, No Posterior Pharyngeal Erythema Neck-Supple, No JVD, No Thyromegaly, No Masses, No LAD, No Bruits Lungs-Clear to Auscultation Bilaterally, No Rales, No Rhonchi, No Wheezing, No Crepitus Chest-No S4, +S1, +S2, No S3, No Murmurs, No Rubs, No Gallops, No Ectopy Abdomen-Soft, Bowel Sounds Present, Non Tender, Non Distended, No Hepatomegaly, No Splenomegaly, No Palpable Masses, No Rebound, No Rigidity, No Guarding Musculoskeletal-Full Range of Motion Bilaterally, No CVAT Extremities-No Cyanosis, No Clubbing, No Edema Nuero-Cranial Nerves II-XII grossly intact, Motor WNL, DTRs WNL, Strength WNL, Non Focal Psych-Normal Mood Results & Data Vital Signs (Past 12 Hours) Vital Signs Temp Pulse Pulse Resp BP Pulse Ox 07/21/19 07:45 36.5 C 72 18 149/69 H 96 07/21/19 03:52 36.9 C 70 16 174/76 H 93 07/21/19 00:22 75 07/20/19 23:39 36.9 C 68 16 149/69 H 92 Current Diagnoses Hyperlipidemia, unspecified (07/17/19) Essential (primary) hypertension (07/17/19) Non-ST elevation (NSTEMI) myocardial infarction (07/17/19) Atherosclerotic heart disease of [place] coronary artery with unspecified angina pectoris (07/17/19) Atrioventricular block, second degree (07/17/19) Left ventricular failure, unspecified (07/17/19) Hypotension, unspecified (07/17/19) Gastro-esophageal reflux disease without esophagitis (07/17/19) Shortness of breath (07/17/19) Prediabetes (07/17/19) Encounter for prophylactic measures, unspecified (07/17/19) Other specified health status (07/17/19) Presence of cardiac pacemaker (07/17/19) Allergies Penicillins Allergy (Severe, Verified 07/17/19 14:52) edema loratadine Allergy (Intermediate, Verified 07/18/19 10:08) Rash meperidine [From Demerol] Allergy (Intermediate, Unverified 07/18/19 10:08) Redness of Skin Zriwwph-Vqs-Hdj Reductase Inhibitor Adverse Reaction (Intermediate, Verified 07/17/19 14:52) muscle pain alendronate sodium [From Fosamax] Adverse Reaction (Mild, Verified 07/18/19 10:08) Heartburn lovastatin Adverse Reaction (Mild, Verified 07/17/19 14:52) Muscle Pain Height/Weight/Isolation Height 5 ft 3 in Weight 57.6 kg Chemistry 07/20/19 07/21/19 05:26 06:49 Sodium 141 141 Potassium 4.2 3.9 Chloride 108 H 107 Carbon Dioxide 27 27 Anion Gap 6.0 7.0 BUN 11 12 Creatinine 1.03 0.76 Glucose 176 H 120 H
--- NOTE | 2019-07-21 08:53 | Cardiology Progress Note ---
Date of Service July 21, 2019 Assessment & Plan (1) Second degree AV block, Mobitz type II: s/p Medtronic dual chamber ppm placement 07/19/19 will arrange outpatient follow up with wound check with Dr. Sahni's office and device clinic with [facility] [place] restrictions reviewed Patient now ambulatory in room Telemetry this morning once again atrial sensed with ventricular paced rhythm at appropriately (2) Hypotension (arterial): initial concern was for RV infarct, however, cardiac cath ruled that out ?vagal event with residual anesthesia Blood pressures continue to trend slightly upward. Now on optimal medical regimen including beta-divya, MINGO inhibitor statin and aspirin. 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 but no culprit lesion on emergent cath will treat medically and start metoprolol now will follow closely as an outpatient, if develops symptoms may require complex coronary intervention at [facility] cont aspirin cont pravastatin, she has not tolerated other statins Continue to mobilize patient Plan as above add low-dose nitrates to optimal medical regimen, if blood pressure remains persistently elevated increase lisinopril to 5 mg twice per day Subjective Patient seen and examined, chart, telemetry, medications reviewed No chest pain shortness of breath dizziness or lightheadedness. Incisional discomfort improving at site of pacemaker insertion. No hypotension with blood pressures trending higher but asymptomatic Physical Exam Constitutional: WD/WN, vitals as above Eyes: PERRL, conjunctivae normal, anicteric sclerae ENMT: external ear and nose normal, oropharynx normal Neck: trachea midline, no thyromegaly Respiratory: normal respiratory effort, lungs clear to auscultation Cardiovascular: Rate/Rhythm: regular rate and regular rhythm Heart Sounds: normal S1 and normal S2; no gallop and no murmur Palpation: normal PMI Vessels: normal carotid upstroke and radial pulses present; no JVD and no carotid bruit Extremities: no edema Chest (Breasts): Chest: + pacemaker (Site bandaged without drainage no surrounding hematoma no inappropriate tenderness) Gastrointestinal (Abdomen): normal bowel sounds, soft, nontender, no hepatosplenomegaly Musculoskeletal: no cyanosis or clubbing, extremities motor strength 5/5 Skin: no rashes, warm and dry Neurologic: PERRL, EOMI, accommodation nl, no face palsy, no dysarthria Psychiatric: A+Ox3, euthymic affect Results & Data Vital Signs (Past 12 Hours) Vital Signs Temp Pulse Pulse Resp BP Pulse Ox 07/21/19 07:45 36.5 C 72 18 149/69 H 96 07/21/19 03:52 36.9 C 70 16 174/76 H 93 07/21/19 00:22 75 07/20/19 23:39 36.9 C 68 16 149/69 H 92 Laboratory Results Laboratory Results - last 24 hr 07/21/19 07/21/19 07/21/19 06:49 06:49 07:52 WBC 5.97 RBC 4.28 Hgb 12.5 Hct 37.4 MCV 87.4 MCH 29.2 MCHC 33.4 RDW Std Deviation 43.0 RDW Coeff of Ashley 13.5 Plt Count 147 MPV 9.9 Sodium 141 Potassium 3.9 Chloride 107 Carbon Dioxide 27 Anion Gap 7.0 BUN 12 Creatinine 0.76 Est Cr Clr Drug Dosing 41.5 Est GFR ( Amer) 80.6 Est GFR (Non-Af Amer) 69.5 BUN/Creatinine Ratio 15.4 Glucose 120 H POC Glucose 134 H Calcium 9.2 Total Bilirubin 1.6 H AST 18 ALT 21 Alkaline Phosphatase 85 Total Protein 6.2 L Albumin 3.2 L Globulin 3.0 Albumin/Globulin Ratio 1.1 (1) Coronary artery disease Coronary Disease-Associated Artery/Lesion type: unspecified vessel or lesion type [place] vs. transplanted heart: [place] heart Associated angina: with unspecified angina Qualified Code(s): I25.119 - Atherosclerotic heart disease of [place] coronary artery with unspecified angina pectoris
[2019-07-21] MEDS: ENOXAPARIN INJ 30 MG/0.3 ML SYR SQ SCH (09:06)
[2019-07-21] MEDS: ISOSORBIDE DINITRATE 10 MG TAB PO SCH ×2 (11:38→14:28)
[2019-07-21] MEDS ORDERED: CARBOHYDRATES FOR HYPOGLYCEMIA PO PRN (11:45)
[2019-07-21] MEDS ORDERED: ISOSORBIDE DINITRATE 10 MG TAB PO ONE (16:00)
[2019-07-21] MEDS: PRAVASTATIN SOD 10 MG TAB PO SCH (20:15)
[2019-07-22] MEDS: ISOSORBIDE DINITRATE 10 MG TAB PO SCH ×2 (06:27→13:00)
[2019-07-22 06:46] LABS: Hematocrit (blood only) 36.3 % (37-47); Hemoglobin 12.3 g/dL (12.0-16.0); Mean Corpuscular Hemoglobin 29.4 pg (25-34); Mean Corpuscular Hgb Conc 33.9 g/dL (32-36); Mean Corpuscular Volume 86.8 fL (80-100); Mean Platelet Volume 9.9 fL (7.4-10.4); Platelet Count 153 K/uL (130-400); RDW Coefficient of Variation 13.4 % (11.5-14.5); RDW Standard Deviation 42.5 fL (36.4-46.3); Red Blood Count 4.18 M/uL (4.2-5.4); White Blood Count 7.41 K/uL (4.8-10.8)
[2019-07-22 07:24] LABS: BUN Creatinine Ratio 17.7 (10-20); Calcium 9.3 mg/dl (8.5-10.1); Est GFR (African American) 79.3; Est GFR (Non-African American) 68.5
[2019-07-22] MEDS: LISINOPRIL 5 MG TAB PO SCH ×2 (08:30→20:17)
[2019-07-22] MEDS: ASPIRIN 81 MG ECTAB PO SCH (08:30)
[2019-07-22] MEDS: PANTOprazole 40 MG TAB PO SCH (08:31)
[2019-07-22] MEDS: MAGNESIUM OXIDE 400 MG TAB PO SCH (08:31)
[2019-07-22] MEDS: METOPROLOL SUCC 25MG EXT REL TAB PO SCH (08:31)
--- NOTE | 2019-07-22 10:23 | Cardiology Progress Note ---
Date of Service July 22, 2019 Assessment & Plan (1) Second degree AV block, Mobitz type II: s/p Medtronic dual chamber ppm placement 07/19/19 will arrange outpatient follow up with wound check with Dr. Sahni's office and device clinic with [facility] restrictions reviewed Patient now ambulatory in room Telemetry this morning once again atrial sensed with ventricular paced rhythm at appropriately (2) Hypotension (arterial): initial concern was for RV infarct, however, cardiac cath ruled that out ?vagal event with residual anesthesia Blood pressures continue to trend slightly upward. Now on optimal medical regimen including beta-divya, MINGO inhibitor statin and aspirin. We will increase the lisinopril to 5 mill grams p.o. twice daily, make metoprolol succinate 25 mg daily with an additional 12.5 mg this morning Continue low-dose nitrates (3) Coronary artery disease: Patient does have multivessel coronary artery disease but no culprit lesion on emergent cath will treat medically and start metoprolol now will follow closely as an outpatient, if develops symptoms may require complex coronary intervention at [facility] cont aspirin cont pravastatin, she has not tolerated other statins Continue to mobilize patient Plan as above tolerating low-dose nitrates to optimal medical regimen, if blood pressure remains persistently elevated increase lisinopril to 5 mg twice per day Subjective Patient seen and examined, chart, telemetry, medications reviewed No chest pain shortness of breath dizziness or lightheadedness. Incisional discomfort improving at site of pacemaker insertion. No hypotension with blood pressures still higher but asymptomatic Physical Exam Constitutional: WD/WN, vitals as above Eyes: PERRL, conjunctivae normal, anicteric sclerae ENMT: external ear and nose normal, oropharynx normal Neck: trachea midline, no thyromegaly Respiratory: normal respiratory effort, lungs clear to auscultation Cardiovascular: Rate/Rhythm: regular rate and regular rhythm Heart Sounds: normal S1 and normal S2; no gallop and no murmur Palpation: normal PMI Vessels: normal carotid upstroke and radial pulses present; no JVD and no carotid bruit Extremities: no edema Chest (Breasts): Additional Comments: Pacemaker site without tenderness or irritation no hematoma incision well-healed Gastrointestinal (Abdomen): normal bowel sounds, soft, nontender, no hepatosplenomegaly Musculoskeletal: no cyanosis or clubbing, extremities motor strength 5/5 Skin: no rashes, warm and dry Neurologic: PERRL, EOMI, accommodation nl, no face palsy, no dysarthria Psychiatric: A+Ox3, euthymic affect Results & Data Vital Signs (Past 12 Hours) Vital Signs Temp Pulse Pulse Pulse Pulse Pulse Resp 07/22/19 09:02 89 79 84 07/22/19 07:48 37.0 C 76 18 07/22/19 04:01 36.5 C 70 16 07/22/19 01:39 62 07/22/19 00:03 36.4 C L 73 16 Resp Resp Resp BP BP Pulse Ox Pulse Ox 07/22/19 09:02 18 18 18 94 07/22/19 07:48 170/69 H 98 07/22/19 04:01 188/74 H 164/75 H 93 07/22/19 01:39 07/22/19 00:03 137/66 92 Pulse Ox Pulse Ox 07/22/19 09:02 93 94 07/22/19 07:48 07/22/19 04:01 07/22/19 01:39 07/22/19 00:03 (1) Coronary artery disease Coronary Disease-Associated Artery/Lesion type: unspecified vessel or lesion type [place] vs. transplanted heart: [place] heart Associated angina: with unspecified angina Qualified Code(s): I25.119 - Atherosclerotic heart disease of [place] coronary artery with unspecified angina pectoris
[2019-07-22] MEDS ORDERED: METOPROLOL SUCC 25MG EXT REL TAB PO ONE (10:45)
[2019-07-22] MEDS: ENOXAPARIN INJ 30 MG/0.3 ML SYR SQ SCH (10:56)
--- NOTE | 2019-07-22 15:43 | Hospitalist Progress Note ---
Date of Service July 22, 2019 Assessment & Plan (1) Second degree AV block, Mobitz type II: Patient is an 89 yr female who presents secondary to LIM x1 week and being referred by PCP. Second-degree AV block, Mobitz Type II S/P Dual Chamber Pacemaker Placement on 07/19/19 TSH normal Needs outpatient FU with Cardiology 's Office and [facility] [place] for device check Appreciate Cardiology Input CAD: S/P Cardiac Cath: Multivessel coronary artery disease; no culprit lesion on emergent cath Plan to treat medically Continue aspirin, metoprolol, lisinopril, statin, Imdur Appreciate Cardiology help (2) Hypertension: BP slightly elevated Asymptomatic HTN Medications adjusted Continue Lisinopril, Metoprolol Also on Imdur (3) Hyperlipidemia: continue statin (4) Pre-diabetes: Hypoglycemia A1C 5.9 03/13 Update A1C Monitor BGs (5) GERD (gastroesophageal reflux disease): continue Protonix (6) DVT prophylaxis: Lovenox SQ Code Status Full Code Disposition: Plan to discharge home when stable Follow up: PCP Dr. Wilcox & Cardiology upon discharge Subjective Patient is seen and examined at bedside Complains of generalized weakness Blood pressure slightly elevated this morning Denies any chest pain, shortness of breath, dizziness, nausea, abdominal pain Mild soreness at the site of PPM Family at bedside HTN meds adjusted today Review of Systems Review of Systems: All systems reviewed & are unremarkable except as noted in HPI & below Physical Exam Physical Exam: Physical Exam: Vitals signs as noted above General Appearance:Elderly, no apparent distress Head: normocephalic, Atraumatic Eyes: normal inspection, EOMI Neck: supple, Trachea midline Respiratory/Chest: Normal breath sounds, CTA, PPM site healing Cardiovascular: S1, S2, No murmur Abdomen/GI:Soft, Non tender, Bowel sounds present Extremities/Musculoskelatal:normal inspection, no edema Neurologic/Psych:AAOX3, grossly no focal neurological deficits Skin: normal color, warm Results & Data Vital Signs (Past 12 Hours) Vital Signs Temp Pulse Pulse Pulse Pulse Resp Resp 07/22/19 15:04 36.6 C 70 16 07/22/19 11:55 36.9 C 84 16 07/22/19 09:02 89 79 84 18 07/22/19 07:48 37.0 C 76 18 07/22/19 04:01 36.5 C 70 16 Resp Resp BP BP Pulse Ox Pulse Ox Pulse Ox 07/22/19 15:04 133/65 94 07/22/19 11:55 161/73 H 97 07/22/19 09:02 18 18 94 93 07/22/19 07:48 170/69 H 98 07/22/19 04:01 188/74 H 164/75 H 93 Pulse Ox 07/22/19 15:04 07/22/19 11:55 07/22/19 09:02 94 07/22/19 07:48 07/22/19 04:01 Laboratory Results Short CBC 07/22/19 Range/Units 06:18 WBC 7.41 (4.8-10.8) K/uL Hgb 12.3 (12.0-16.0) g/dL Hct 36.3 L (37-47) % Plt Count 153 (130-400) K/uL BMP 07/22/19 06:18 Sodium 141 Potassium 4.0 Chloride 108 H Carbon Dioxide 27 BUN 14 Creatinine 0.77 Glucose 118 H Calcium 9.3
[2019-07-22] MEDS: PRAVASTATIN SOD 10 MG TAB PO SCH (20:17)
[2019-07-23 07:16] LABS: BUN Creatinine Ratio 18.9 (10-20); Calcium 9.5 mg/dl (8.5-10.1); Est GFR (African American) 79.3; Est GFR (Non-African American) 68.5; Potassium 3.8 mmol/L (3.5-5.1)
[2019-07-23 08:04] LABS: Estimated Average Glucose 117 mg/dl; Hemoglobin A1C 5.7 % (4.5-5.6)
[2019-07-23] MEDS: MAGNESIUM OXIDE 400 MG TAB PO SCH (08:05)
[2019-07-23] MEDS: ASPIRIN 81 MG ECTAB PO SCH (08:06)
[2019-07-23] MEDS: ISOSORBIDE DINITRATE 10 MG TAB PO SCH (08:06)
[2019-07-23] MEDS: PANTOprazole 40 MG TAB PO SCH (08:06)
[2019-07-23] MEDS: LISINOPRIL 5 MG TAB PO SCH (08:07)
[2019-07-23] MEDS: ENOXAPARIN INJ 30 MG/0.3 ML SYR SQ SCH (08:07)
[2019-07-23] MEDS ORDERED: METOPROLOL SUCC 25MG EXT REL TAB PO SCH (09:00)
--- NOTE | 2019-07-23 12:35 | Hospitalist Progress Note ---
Date of Service July 23, 2019 Assessment & Plan (1) Second degree AV block, Mobitz type II: Patient is an 89 yr female who presents secondary to LIM x1 week and being referred by PCP. Second-degree AV block, Mobitz Type II S/P Dual Chamber Pacemaker Placement on 07/19/19 TSH normal Needs outpatient FU with Cardiology--[facility] for device check Appreciate Cardiology Input CAD: S/P Cardiac Cath: Multivessel coronary artery disease; no culprit lesion on emergent cath Plan to treat medically Continue aspirin, metoprolol, lisinopril, statin Imdur discontinued as per Cardiology Appreciate Cardiology help (2) Hypertension: BP better today Asymptomatic HTN Medications adjusted Continue Lisinopril, Metoprolol (3) Hyperlipidemia: continue statin (4) Pre-diabetes: Hypoglycemia A1C:5.7 Monitor BGs Hypoglycemia resolved (5) GERD (gastroesophageal reflux disease): continue Protonix (6) DVT prophylaxis: Lovenox SQ Code Status Full Code Disposition: Plan to discharge home today Follow up: PCP Dr. Wilcox & Cardiology upon discharge Subjective Patient is seen and examined at bedside Doing much better today Generalized weakness improved No new complaints Blood pressure better today Discussed with Cardiology today Denies any chest pain, shortness of breath, dizziness, nausea, abdominal pain Family at bedside Review of Systems Review of Systems: All systems reviewed & are unremarkable except as noted in HPI & below Physical Exam Physical Exam: Physical Exam: Vitals signs as noted above General Appearance:Elderly, no apparent distress Head: normocephalic, Atraumatic Eyes: normal inspection, EOMI Neck: supple, Trachea midline Respiratory/Chest: Normal breath sounds, CTA, PPM site healing Cardiovascular: S1, S2, No murmur Abdomen/GI:Soft, Non tender, Bowel sounds present Extremities/Musculoskelatal:normal inspection, no edema Neurologic/Psych:AAOX3, grossly no focal neurological deficits Skin: normal color, warm Results & Data Vital Signs (Past 12 Hours) Vital Signs Temp Pulse Resp BP Pulse Ox 07/23/19 10:53 85 18 101/65 96 07/23/19 07:18 63 20 157/76 H 91 07/23/19 05:15 36.9 C 73 18 173/82 H 93 Laboratory Results [facility] 07/23/19 06:28 Sodium 141 Potassium 3.8 Chloride 108 H Carbon Dioxide 26 BUN 15 Creatinine 0.77 Glucose 106 H Calcium 9.5
--- NOTE | 2019-07-23 12:40 | Discharge Summary ---
Date of Service July 23, 2019 Admission HPI Per Admitting Provider This is an 89 year old F who has significant past medical history of primary hyperparathyroidism, HTN, HLD, prediabetes, GERD, senile osteoporosis, transient constipation who presents to [facility] ED secondary to LMI x1 week and being referred by PCP. Patient was seen in PCP office secondary to 1 week history of shortness of breath with exertion. When she was seen in outpatient provider office this afternoon she was noted to be in second-degree heart block and therefore referred to ED. Symptoms started after she was working vigorously outside and getting into her significant other's Truck. LIM came on abruptly and has been off and on for the past week. Does not occur at rest. Usually present for a few minutes and resolves with rest. Noticed mostly with using stairs but not typical ADLs. She has not had any fever, chills, sweats colitis, dizziness, syncope, chest pain, palpitations, cough, hemoptysis, nausea, vomiting, diarrhea, change in bowel or urinary habits. Complains of off and on constipation. No known tick bite, rash or myalgias. She was feeling her carotid pulse and felt like her heart was skipping a beat. In ED patient was found to be bradycardic which prompted ECG. ECG revealed sinus rhythm with Mobitz type II second-degree AV block at 48 bpm. Her lab work was otherwise unremarkable including CBC, CMP, troponin, TSH, magnesium Chest x-ray revealed no acute abnormality Patient was seen and evaluated by cardiology Dr. Zapata, permanent pacemaker advised Admission Exam Per Admitting Provider Constitutional: WD/WN, vitals as above, NAD, sitting up in bed, pleasant, conversing easily Head: Normocephalic, Atraumatic Eyes: PERRL, conjunctivae normal, anicteric sclerae ENMT: external ear and nose normal, oropharynx normal Neck: trachea midline, no thyromegaly normal visual inspection Respiratory: normal respiratory effort, lungs clear to auscultation, no wheeze, rales, rhonchi. Normal insp/exp effort, no accessory muscle use Cardiovascular: bradycardic rate, regular rhythm, no murmur, no edema Vessels: no JVD or carotid bruit Chest: normal inspection of chest Abdomen: normal bowel sounds, soft, nontender, no hepatosplenomegaly Musculoskeletal: no cyanosis or clubbing, extremities motor strength 5/5 Skin: no rashes, warm and dry normal turgor Neurologic: PERRL, EOMI, accommodation nl, no face palsy, no dysarthria CN's II-XI intact bilaterally and moves all extremities Psychiatric: A+Ox3, euthymic affect Lymphatic: no cervical or axillary lymphadenopathy : deferred Principal Diagnosis Discharge Information Discharge Diagnosis Second-degree heart block Hypoglycemia Coronary artery disease Discharge Goals Decrease discomfort,Improve disease control, Improve function Discharge Activity Limitations Resume your previous activity Discharge Data Allergies Allergy/AdvReac Type Severity Reaction Status Date / Time Penicillins Allergy Severe edema Verified 07/17/19 14:52 loratadine Allergy Intermediate Rash Verified 07/18/19 10:08 meperidine [From Demerol] Allergy Intermediate Redness of Unverified 07/18/19 10:08 Skin [id number] Reductase AdvReac Intermediate muscle pain Verified 07/17/19 14:52 Inhibitor alendronate sodium AdvReac Mild Heartburn Verified 07/18/19 10:08 [From Fosamax] lovastatin AdvReac Mild Muscle Pain Verified 07/17/19 14:52 Consultations 07/17/19 15:41 Consult Cardiology Routine 07/17/19 17:27 Consult Case Management - Discharge Planning Routine Consult Bomb Squad Officer Routine 07/17/19 18:13 Consult Cardiac Electrophysiology Routine 07/21/19 08:46 Consult Case Management - Discharge Planning Routine Procedures Performed Operation Date: 07/18/19 07:30 Actual Procedures p Pacemaker Insertion(Left) - Gasper Sahni MD Operation Date: 07/18/19 17:55 Actual Procedures p Cath, Coronaries ONLY (no LV) - Ana Haddad s Cineradiography w/Routine Exam - Ana corona Cardiac Heart Alert - Ana Haddad Cardiac catheterization: Summary of Findings Significant 3vd 80% bifurcating LAD/Diag 90% Circ 90% OM2 Hemodynamics Rest Ao:: 105/41 Final Ao: 108/43 LV: nd Recommendations Recommendations: Medical Therapy and/or Counseling CXR: No acute process. ECHO: Limited study No significant pericardial effusion Normal LV systolic function, abnormal septal wall motion consistent with pacemaker activation Slightly reduced RV systolic function Ordered Studies 07/18/19 07:40 FL pacemaker insert Routine 07/18/19 17:58 CL Cath Imgs for PACS use only Stat Hospital Course (1) Second degree AV block, Mobitz type II: Patient is an 89 yr female who presents secondary to LIM x1 week and being referred by PCP. Second-degree AV block, Mobitz Type II S/P Dual Chamber Pacemaker Placement on 07/19/19 TSH normal Needs outpatient FU with Cardiology--[facility] for device check Appreciate Cardiology Input CAD: S/P Cardiac Cath: Multivessel coronary artery disease; no culprit lesion on emergent cath Plan to treat medically Continue aspirin, metoprolol, lisinopril, statin Imdur discontinued as per Cardiology Appreciate Cardiology help (2) Hypertension: BP better today Asymptomatic HTN Medications adjusted Continue Lisinopril, Metoprolol (3) Hyperlipidemia: continue statin (4) Pre-diabetes: Hypoglycemia A1C:5.7 Monitor BGs Hypoglycemia resolved (5) GERD (gastroesophageal reflux disease): continue Protonix (6) DVT prophylaxis: Lovenox SQ Code Status Full Code Disposition: Plan to discharge home today Follow up: PCP Dr. Wilcox & Cardiology upon discharge Total Time Total Time Spent Total Time Spent (In Minutes): 41 minutes Total Time Includes: Examination of the Patient, Discharge Planning, Medication Reconciliation, Communication With Other Providers and Other Discharge Plan Discharge Items Patient Disposition: Home - Home Health Services Reason For Visit: 2ND DEGREE HEART BLOCK Discharge Diagnosis: Second-degree heart block Hypoglycemia Coronary artery disease Discharge Goals: Decrease discomfort, Improve disease control and Improve function Activity: Resume your previous activity Exercise/Sports: Gradually increase as tolerated Non-emergency contact: Primary Care Provider and Lead Teller Call non-emergency contact if: you have any medication questions, your symptoms worsen, your pain is not controlled, your pain is worsening, your pain is unusual for you, your pain is concerning for you, you have a fever, your wound has increased redness, your wound has increased drainage and your wound pain has increased Follow-up/Referrals: Kristofer Wilcox MD [Primary Care Provider] - Diet: Heart Healthy Addtl Provider Instructions: Follow-up with your primary care physician Dr. Wilcox on July 28, 2019 at 2:20 PM Follow-up with your rn paralegal Dr. Alvarado in 3 weeks as advised Seek immediate medical attention if your symptoms reoccur or worsen Prescriptions: New metoprolol succinate 25 mg Tablet Extended Release 24 Hr 25 mg PO QAM 30 Days Qty: 30 RF: 0 Continued aspirin [Aspirin Low Dose] 81 mg Tablet,Delayed Release (Dr/Ec) 81 mg PO DAILY RF: 0 pravastatin 10 mg Tablet 10 mg PO DAILY RF: 0 esomeprazole magnesium [Nexium] 20 mg Capsule,Delayed Release(Dr/Ec) 20 mg PO DAILY RF: 0 magnesium oxide 400 mg (241.3 mg magnesium) Tablet 400 mg PO DAILY RF: 0 Changed lisinopril 5 mg Tablet 5 mg PO BID 30 Days Qty: 60 RF: 0 Stand-Alone Forms: [facility]/Other Patient Handouts: Metoprolol Succinate Oral tablet extended- release, Pacemaker, Catheterization Cardiac, Meds Taking Discharge Orders: Discharge Order (Routine); Ordered 07/23/19 Ordered By: Davis Negrete Admission Data Admit Date/Time: 07/17/19 15:28 Attending Provider: Davis Negrete Admit Provider: Lesley Dave Primary Care Provider: Kristofer Wilcox Other Providers: Binh Zapata ; Ronal Watts ; Gasper Sahni ; Neel Constantino Service: Telemetry Other Interventions: Discharge Summary Assessment (RN) Last Done: 07/23/19 12:57 Pending Studies at Discharge: No DC Date/Time DO NOT enter until pt leaves facility: 07/23/19 15:10
== END 2019-07-23 15:10 | disposition home health service (06) | DRG 244 ==
LOC: ED 12:47 → SUATTDRO 15:28 → 1E 15:28 → 2S 07-19 12:43
PROC: CLB.CCO (2019-07-18 17:55)